=== PATIENT | male | born 1970 | race Caucasian/White ===

== ENCOUNTER 2019-03-04 06:01 | Emergency (ER) | payer OTHER, SELFPAY ==
[2019-03-04 06:02] VITALS: BP 192/126; PULSE 86; RESP 16; TEMP 36.8; O2SAT 98; BMI 46.7
[2019-03-04 06:05] VITALS: O2SAT 97
--- NOTE | 2019-03-04 06:07 | EKG12_ITS ---
Test Reason : CP Blood Pressure : / mmHG Vent. Rate : 083 BPM Atrial Rate : 083 BPM P-R Int : 144 ms QRS Dur : 098 ms QT Int : 376 ms P-R-T Axes : 047 -43 024 degrees QTc Int : 441 ms Normal sinus rhythm Left axis deviation Abnormal ECG Confirmed by ROBYN HEATON, ADRIAN ([id number]), publication editor MODESTO TAN ([id number]) on 03/08/2019 8:45:47 AM Referred By: DC Confirmed By:ADRIAN CARLSON MD
[2019-03-04 06:15] VITALS: PULSE 80; RESP 16
--- NOTE | 2019-03-04 06:15 | RAD_ITS ---
STUDY: X-RAY CHEST REASON FOR EXAM: Male, 48 years old. COUGH, CHEST PAIN, SOB TECHNIQUE: AP portable COMPARISON: 07/14/2012 FINDINGS: The lungs are clear and expanded. There is no demonstrated pleural abnormality. Normal size heart. Normal mediastinum and monique. Normal visualized pulmonary arteries. Normal visualized aortic arch and descending thoracic aorta. Normal visualized thoracic spine. Normal visualized ribs, clavicles, and shoulders. There is no demonstrated abnormality of the visualized soft tissue structures of the upper abdomen. RAD/Chest 1 View (Portable) IMPRESSION: Negative x-ray examination of the chest. Electronically Signed: Zuhair Bueno, at 6:39 EST Tel , Service support ,
[2019-03-04 06:28] LABS: Absolute Lymphocyte Count 1.86 X10^3/uL (0.83-4.51); Absolute Neutrophil Count 4.7 X10^3/uL (2.0-7.7); Basophil# 0.04 X10^3/uL; Basophil% 0.5 % (0-1); Eosinophil# 0.54 X10^3/uL; Eosinophils% 6.8 % (0-5); Hematocrit 45.1 % (40-54); Hemoglobin 15.4 g/dL (13.0-16.5); Lymphocyte # 1.86 X10^3/ul (4.0); Lymphocyte % 23.6 % (19-41); Mean Corp Hgb Conc 34.1 g/dL (32-36); Mean Corpuscular Hgb 29.8 pg (27.0-32.0); Mean Corpuscular Volume 87.2 fL (80-94); Mean Platelet Vol. 9.6 fl (6.2-12.0); Monocyte# 0.76 X10^3/uL; Monocyte% 9.6 % (0-10); NRBC Flagged by Analyzer 0 % (0-5); Neutrophil # 4.67 X10^3/uL (2.7-7.7); Neutrophil % 59.2 % (47-70); Platelet Count 258 K/mm3 (150-450); RBC Distribution Width CV 12.5 % (11.6-14.6); RBC Distribution Width SD 40.2 fl (35.1-43.9); Red Blood Count 5.17 M/mm3 (4.6-6.2); White Blood Count 7.9 K/mm3 (4.4-11.0)
--- NOTE | 2019-03-04 06:30 | ED.RN ---
DR ASH NOTIFIED PT DOES NOT HAVE AN IV BUT BLOOD WAS OBTAINED. PER DR ASH OK TO HOLD OFF ON IV AT THIS TIME
[2019-03-04 06:46] LABS: Anion Gap 5 (5-15); BUN 10 mg/dL (7-18); BUN/Creat Ratio 10.5 RATIO (10-20); Calcium,Total 9.1 mg/dL (8.5-10.1); Chloride 110 mmol/L (98-107); Creatinine, Serum 0.95 mg/dL (0.70-1.30); EST Glomerular Filtration Rate 90 mL/min (>60); Est Glom Filt Rate - Afr Amer 109 mL/min (>60); Estimated Creatinine Clearance 95.09 ml/min; Glucose 112 mg/dL (74-106); Potassium 3.9 mmol/L (3.5-5.1); Sodium Level 143 mmol/L (136-145)
--- NOTE | 2019-03-04 06:53 | ED.DCSUM_ITS ---
- ER Visit Summary Date of Service: 03/04/19 Chief Complaint: Cold History of Present Illness: The patient is a 48 M with cold symptoms for the past week. He has a cough with sputum. Denies fevers. Over the past 3 days he has had left-sided chest pain with coughing. No history of heart disease, blood clots, aortic disease. No recent surgery or travel. History of hypertension. He is out of his blood pressure medicine. Physical Examination: Afebrile and vital signs unremarkable except blood pressure 192/126. Patient has wheezing in all blake. Heart regular. Abdomen soft. Extremities nontender with no edema. Skin appears normal. Test Results: EKG shows sinus rhythm at a rate of 83. No sign of acute ischemia or infarction pattern. Chest x-ray negative. CBC normal. BMP unremarkable. Troponin normal. Emergency Department Course and Treatment: Patient had an EKG and was placed on a monitor. He was given a breathing treatment as well as his home blood pressure medicines that he has not taken yet today. On reevaluation, blood pressure is 167/108. Patient's lungs are clear. He is feeling better. We will treat with a course of doxycycline and an albuterol inhaler. I refilled his blood pressure medicines. He will follow-up with his PCP. Treatment Plan: As above Disposition: Discharge Impression: 1. Bronchitis 2. Hypertension This note was generated with [employer] dictation software. It may contain incorrect words, spelling, and punctuation that were not noted in review of the chart prior to signing ED Disposition - Plan for ED Patient: Referrals: Care Physician,No Primary [Primary Care Provider] -
[2019-03-04] MEDS: Metoprolol(XL)Succ 100 MG Tablet PO (06:54)
[2019-03-04] MEDS: Losartan Potassium 100 MG Tablet PO (06:54)
--- NOTE | 2019-03-04 06:55 | ED.DEP ---
ED Disposition - Plan for ED Patient: Instructions: BRONCHITIS, Antiobiotic Treatment (Adult) Prescriptions: Doxycycline 100 mg PO BID #20 cap Prescription Printed Losartan Potassium 100 mg PO DAILY #30 tab Prescription Printed Metoprolol Succinate 100 mg PO DAILY #30 tab.er.24h Prescription Printed Albuterol Inhaler [Ventolin Hfa] 2 puff INHALATION Q4H PRN PRN #1 inhaler PRN Reason: Wheezing Prescription Printed Referrals: Teddy Menchaca MD [NON-STAFF] -
[2019-03-04 06:56] VITALS: BP 167/108; PULSE 86; RESP 13; O2SAT 96
[2019-03-04] MEDS: Doxycycline 100 MG CAPSULE PO (07:12)
[2019-03-04 07:13] VITALS: BP 165/111; PULSE 83; RESP 18; O2SAT 97
== END 2019-03-04 07:16 | disposition home or self-care (01) ==
LOC: ED 06:20
PROVIDERS: Emergency Provider Emergency Medicine
DX: J40 Bronchitis, not specified as acute or chronic (principal); I10 Essential (primary) hypertension
CPT/HCPCS: 71045; 80048; 84484; 85025; 93005; 94640; 99284

== ENCOUNTER 2020-01-15 18:59 | Emergency (ER) | payer OTHER, SELFPAY ==
[2020-01-15 19:01] VITALS: PULSE 80; RESP 19; TEMP 36.3; O2SAT 96; BMI 45.3
[2020-01-15 20:20] VITALS: BP 196/107; PULSE 77; RESP 18; TEMP 36.7; O2SAT 96; O2SAT 98
[2020-01-15] MEDS: diazePAM 5 MG Tablet PO (20:21)
[2020-01-15] MEDS: 0.9% Normal Saline 1,000 ML 1000 ML IV ×2 (20:52→22:19)
[2020-01-15] MEDS: Ketorolac 30 MG/ML Syringe IV (20:53)
[2020-01-15 21:20] LABS: Probe Check PASS; Specimen Processing Control PASS
[2020-01-15 21:21] LABS: ALB/GLOB Ratio 1.1 RATIO (0.9-2.4); AST(SGOT) 25 U/L (15-37); Absolute Lymphocyte Count 1.17 X10^3/uL (0.83-4.51); Absolute Neutrophil Count 11.5 X10^3/uL (2.0-7.7); Alanine Aminotransfer ALT/SGPT 53 U/L (16-61); Albumin, Serum 4.1 g/dL (3.2-5.0); Alkaline Phosphatase 79 U/L (45-117); Anion Gap 7 (5-15); BUN 11 mg/dL (7-18); BUN/Creat Ratio 11.6 RATIO (10-20); Basophil# 0.04 X10^3/uL; Basophil% 0.3 % (0-1); Calcium,Total 9.5 mg/dL (8.5-10.1); Chloride 103 mmol/L (98-107); Creatinine, Serum 0.95 mg/dL (0.70-1.30); EST Glomerular Filtration Rate 90 mL/min (>60); Eosinophil# 0.04 X10^3/uL; Eosinophils% 0.3 % (0-5); Est Glom Filt Rate - Afr Amer 109 mL/min (>60); Estimated Creatinine Clearance 94.06 ml/min; Globulin 3.7 g/dL (2.2-4.2); Glucose 112 mg/dL (74-106); Hematocrit 46.4 % (40-54); Hemoglobin 16.3 g/dL (13.0-16.5); Lipase 121 U/L (73-393); Lymphocyte # 1.17 X10^3/ul (4.0); Lymphocyte % 8.7 % (19-41); Mean Corp Hgb Conc 35.1 g/dL (32-36); Mean Corpuscular Hgb 29.9 pg (27.0-32.0); Mean Platelet Vol. 10.3 fl (6.2-12.0); Monocyte# 0.61 X10^3/uL; Monocyte% 4.5 % (0-10); NRBC Flagged by Analyzer 0 % (0-5); Neutrophil # 11.54 X10^3/uL (2.7-7.7); Neutrophil % 85.8 % (47-70); Platelet Count 306 K/mm3 (150-450); Potassium 3.6 mmol/L (3.5-5.1); Protein, Total 7.8 g/dL (6.4-8.2); RBC Distribution Width CV 12.4 % (11.6-14.6); RBC Distribution Width SD 38.2 fl (35.1-43.9); Red Blood Count 5.46 M/mm3 (4.6-6.2); Sodium Level 137 mmol/L (136-145); White Blood Count 13.5 K/mm3 (4.4-11.0)
--- NOTE | 2020-01-15 21:28 | CT_ITS ---
STUDY: CT ABDOMEN AND PELVIS WITH CONTRAST REASON FOR EXAM: Male, 49 years old. COUGH, FEVER, SOB, DIARRHEA SINCE THIS AM RADIATION DOSAGE (If Supplied By Facility): CTDIvol = ( 18.74 ) mGy, DLP = ( 1344.68 ) mGycm TECHNIQUE: Transaxial images were obtained from the dome of the diaphragm to the symphysis pubis without oral contrast. IV 100mL Isovue-370 was administered. Sagittal and coronal images were reconstructed. Individualized dose optimization techniques were used for this CT. COMPARISON: 08/17/2011 FINDINGS: The visualized lung bases are unremarkable. The visualized portions of the heart are within normal limits. There is decreased attenuation of the liver consistent with steatosis. There is non-visualization of the gallbladder, which may be secondary to either contraction or a prior cholecystectomy. Normal spleen. Normal pancreas. Normal bilateral adrenal glands. Right kidney has a 1.5 cm cyst of the lower pole. There is a 2 mm nonobstructing right lower pole stone. Otherwise normal right kidney. Left kidney has tiny nonobstructing stones are seen in the left upper pole and mid pole region. Otherwise normal left kidney. Evaluation of the GI tract is limited by the absence of oral contrast. Normal visualized stomach. Normal small intestine. Normal colon. The appendix is visualized and appears normal. Normal abdominal aorta. Normal inferior vena cava. Normal retroperitoneum. Normal urinary bladder. Normal abdominal wall. There are diffuse degenerative changes of the visualized lumbar spine. CT/Abdomen/Pelvis W IV Cont ONLY IMPRESSION: No definite acute abnormalities. Bilateral tiny nonobstructing renal stones. Electronically Signed: Stuart Adkins MD at 22:20 EST , Service support ,
[2020-01-15] MEDS: Ondansetron 4 MG/2 ML Vial IV (21:32)
--- NOTE | 2020-01-15 21:44 | ED.DCSUM_ITS ---
History of Present Illness Chief Complaint: Shortness of Breath Informant: Patient Narrative: 49-year-old male presents the emergency department with diarrhea and nausea. Symptoms began yesterday and have progressively gotten worse. He notes a slight cough. No fevers. He feels dehydrated. He also has had some intermittent right low back/sciatic pain. Since he has been ill and getting dehydrated's been acting up more than normal for him. No history of colitis. He does eat a fair amount of crab. 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 Past Medical History - Allergies and Home Meds Allergies/Adverse Reactions: Allergies No Known Allergies Allergy (Verified 01/15/20 19:00) Surgical History: noncontributory Lives: With Family Smoking Status: Never smoker Drugs: None Review of Systems General: Denies: Chills, Fever, Sweats Eyes: Denies: Visual changes - bilaterally, Diplopia ENT: Denies: Rhinorrhea, Sore throat Cardiovascular: Denies: Chest pain, Palpitations Respiratory: Reports: Cough. Denies: Dyspnea, Dyspnea on exertion Gastrointestinal: Reports: Nausea, Vomiting, Diarrhea. Denies: Abdominal pain, Melena, Hematochezia Genitourinary: Denies: Dysuria, Hematuria, Frequency Musculoskeletal: Reports: Back pain. Denies: Extremity Pain Skin: Denies: Rash, Wounds Neurological: Denies: Headache, Weakness, Numbness Physical Exam Vital Signs/Narrative: Vital Signs Temp Pulse Resp BP Pulse Ox 01/15/20 20:20 98.0 F 77 18 196/107 H 98 01/15/20 19:01 97.3 F L 80 19 H 96 Inital Vital Signs reviewed: Yes General: Well nourished, Well developed, No Acute Distress Head: Normocephalic, Atraumatic Eyes: Perrl, EOMI ENT: Moist mucous membranes, No rhinorrhea Neck: Supple, Nontender Cardiovascular: Regular rate, Regular rhythm, No murmurs Respiratory: No distress, CTA bilaterally, Chest nontender Abdomen: Soft, Nontender, Nondistended, Normal bowel sounds Back: - - Tender to palpation in the right lumbar paraspinal musculature and right buttock. Extremities: Nontender, No edema Skin: Normal color, No rash Neurological: Alert, Oriented x3, Cranial nerves II-XII grossly intact, Normal Strength, Normal Sensation Psychological: Normal affect, Normal Mood Diagnostic/Tx/Re-eval Laboratory Last Values WBC 13.5 K/mm3 (4.4-11.0) H 01/15/20 20:50 RBC 5.46 M/mm3 (4.6-6.2) 01/15/20 20:50 Hgb 16.3 g/dL (13.0-16.5) 01/15/20 20:50 Hct 46.4 % (40-54) 01/15/20 20:50 MCV 85.0 fL (80-94) 01/15/20 20:50 MCH 29.9 pg (27.0-32.0) 01/15/20 20:50 MCHC 35.1 g/dL (32-36) 01/15/20 20:50 RDW Std Deviation 38.2 fl (35.1-43.9) 01/15/20 20:50 RDW Coeff of Carmelo 12.4 % (11.6-14.6) 01/15/20 20:50 Plt Count 306 K/mm3 (150-450) 01/15/20 20:50 MPV 10.3 fl (6.2-12.0) 01/15/20 20:50 Immature Gran % (Auto) 0.400 % (0.0-0.9) 01/15/20 20:50 Neut % (Auto) 85.8 % (47-70) H 01/15/20 20:50 Lymph % (Auto) 8.7 % (19-41) L 01/15/20 20:50 [place] % (Auto) 4.5 % (0-10) 01/15/20 20:50 Eos % (Auto) 0.3 % (0-5) 01/15/20 20:50 Baso % (Auto) 0.3 % (0-1) 01/15/20 20:50 Absolute Neuts (auto) 11.5 X10^3/uL (2.0-7.7) H 01/15/20 20:50 Absolute Lymphs (auto) 1.17 X10^3/uL (0.83-4.51) 01/15/20 20:50 Nucleated RBC % 0 % (0-5) 01/15/20 20:50 Sodium 137 mmol/L (136-145) 01/15/20 20:50 Potassium 3.6 mmol/L (3.5-5.1) 01/15/20 20:50 Chloride 103 mmol/L (98-107) 01/15/20 20:50 Carbon Dioxide 27.0 mmol/L (21.0-32.0) 01/15/20 20:50 Anion Gap 7 (5-15) 01/15/20 20:50 BUN 11 mg/dL (7-18) 01/15/20 20:50 Creatinine 0.95 mg/dL (0.70-1.30) 01/15/20 20:50 Estim Creat Clear Calc 94.06 ml/min 01/15/20 20:50 Est GFR (MDRD) Af Amer 109 mL/min (>60) 01/15/20 20:50 Est GFR (MDRD) Non-Af 90 mL/min (>60) 01/15/20 20:50 BUN/Creatinine Ratio 11.6 RATIO (10-20) 01/15/20 20:50 Glucose 112 mg/dL (74-106) H 01/15/20 20:50 Calcium 9.5 mg/dL (8.5-10.1) 01/15/20 20:50 Total Bilirubin 0.90 mg/dL (0.20-1.00) 01/15/20 20:50 AST 25 U/L (15-37) 01/15/20 20:50 ALT 53 U/L (16-61) 01/15/20 20:50 Alkaline Phosphatase 79 U/L (45-117) 01/15/20 20:50 Total Protein 7.8 g/dL (6.4-8.2) 01/15/20 20:50 Albumin 4.1 g/dL (3.2-5.0) 01/15/20 20:50 Globulin 3.7 g/dL (2.2-4.2) 01/15/20 20:50 Albumin/Globulin Ratio 1.1 RATIO (0.9-2.4) 01/15/20 20:50 Lipase 121 U/L (73-393) 01/15/20 20:50 COVID-19 (ERAN) Negative (Not Detect) 01/15/20 20:22 - Medical Decision Making Patient received 2 L of IV fluids and Zofran. I also gave Toradol and Valium for the back pain. He is feeling better from the back pain standpoint. As he has been hydrated he states the nausea seems to be getting worse. He received additional Zofran. White count returned slightly elevated at 13. Therefore a CT of the abdomen pelvis was obtained. This was negative for colitis and obstruction. Patient will be discharged home with prescriptions for Zofran and Valium. Return if worsening or concerns ED Disposition - Plan for ED Patient: Disposition: Home or Assisted Living Instructions: ED Spasm Back No Trauma, ED Viral Gastroenteritis Prescriptions: Diazepam [Valium] 5 mg PO Q8 PRN #20 tab PRN Reason: Muscle Spasm Prescription Printed Ondansetron [Zofran Odt] 4 mg PO Q6H PRN PRN #20 tab PRN Reason: Nausea Prescription Printed
[2020-01-15 22:20] VITALS: BP 189/96; PULSE 79; RESP 18; TEMP 36.6; O2SAT 96
[2020-01-15] MEDS: Morphine 4 MG/ML Syringe IV (23:33)
[2020-01-15 23:55] VITALS: BP 173/98; RESP 18; O2SAT 98
== END 2020-01-15 23:57 | disposition home or self-care (01) ==
PROVIDERS: Emergency Provider Emergency Medicine
DX: M54.9 Dorsalgia, unspecified (principal); R05 Cough; R19.7 Diarrhea, unspecified; R11.2 Nausea with vomiting, unspecified
CPT/HCPCS: 74177; 80053; 83690; 85025; 87635; 96361; 96374; 96375; 99283; J7030; Q9967; A4216; J2405; U0002

== ENCOUNTER 2023-11-23 03:38 | Emergency (ER) | payer BC, SELFPAY ==
[2023-11-23 03:39] VITALS: BP 225/114; PULSE 93; RESP 19; TEMP 36.6; O2SAT 96; BMI 50.0
--- NOTE | 2023-11-23 04:13 | ED.VIS.LOWEX ---
HPI History of Present Illness HPI Narrative: Patient presents with left foot pain that began yesterday. Patient states he was walking on the a hill side when he felt a pop in his left foot. Patient states the pain has been getting worse since that time. Patient states it is constant aching but is sharp with weightbearing. Patient states it is better with rest. Patient denies any paresthesias or weakness. Patient denies any other injuries. Patient states he is unable to bear weight due to the pain. Chief Complaint: Lower Extremity Injury Informant: patient Occured/Mechanism Comment: Kinderhook a pop while walking Onset/Context/Timing Onset: Yesterday Context: Sudden Onset Timing: Continuous Quality of Pain: Sharp (With weightbearing) and Aching Location: Left foot Worsened by: Weightbearing Relieved by: Rest Associated Symptoms Associated Symptoms: Negative for Parasthesia, Weakness or Loss of Funtion PFSH [facility] Medical History (Updated 11/23/23 @ 05:[address] Yariel Philippe DO) Biceps tendon rupture Sprained ankle Back muscle spasm Hypertension Home Medications ?Medication ?Instructions ?Recorded ?Last Taken ?Type diazepam 5 mg tablet 5 mg PO Q8 PRN Muscle Spasm #20 01/15/20 Unknown Rx tabs Allergy/AdvReac Type Severity Reaction Status Date / Time No Known Allergies Allergy Verified 11/23/23 03:39 Surgical History (Updated 11/23/23 @ 04:[address] Yariel Philippe DO) History of carpal tunnel surgery History of cholecystectomy Hx of cataract surgery Social History Smoking Status: Never smoker ROS ROS ED Constitutional Constitutional ED: Denies chills or fever(s) Eyes Eyes: Denies blurry vision or change in vision ENT ENT ED: Denies rhinorrhea or sore throat Cardiovascular Cardiovascular: Denies chest pain or palpitations Respiratory/Chest Respiratory/Chest: Denies cough or dyspnea Gastrointestinal Gastrointestinal: Denies nausea or vomiting Genitourinary Genitourinary ED: Denies dysuria or hematuria Musculoskeletal Musculoskeletal: Reports back pain; Denies neck pain Integumentary Denies abscess or rash Neurologic Neurologic: Denies headache(s) or weakness Allergic/Immunologic Allergic/Immunologic ED: Denies mouth swelling or urticaria EXAM Physical Exam Const Vital Signs: 11/23/23 03:39 Temperature 97.8 F Temperature Source Temporal Pulse Rate 93 Respiratory Rate 19 H Blood Pressure 225/114 H Blood Pressure Mean 151 Pulse Ox 96 Oxygen Delivery Method Room Air Positive well nourished and well developed General Appearance ED: well developed and NAD HEENT Reports moist mucous membranes Neck full ROM and supple Extremity Extremity Narrative: There is tenderness over the dorsal and plantar aspects of the left midfoot over the third and fourth metatarsals. There is some mild edema. There is no obvious deformity noted. Range of motion is limited in plantarflexion and dorsiflexion of the left foot secondary to pain. Pedal pulses are equal bilateral. Sensation is intact to light touch in all digits. Neuro oriented x3, CN's II-XII intact bilaterally, moves all extremities and no sensory deficits noted Sensorium / Orientation: alert Motor Exam: strength 5/5 throughout MDM MDM MDM Narrative Medical decision making narrative: Differential diagnosis includes fracture, sprain, and contusion. X-rays of the left foot will be obtained to assess for fracture. Radiography Diagnostic Testing: Clinical Impression(s) from Imaging Studies Foot X-Ray 11/23/23 04:19 IMPRESSION: No evidence of fracture. Electronically Signed: Bhavna Mendoza MD at 5:09 EDT Reading Location ID and State: [facility] / [place] Tel , Service support , X-rays of the left foot were obtained. There are 3 views. On my independent interpretation, there is no acute fracture or dislocation noted. There is no soft tissue swelling noted. Radiologist also interpreted the x-rays and agrees. Treatment and Re-Evaluation Narrative: Patient was given a dose of [place] here. Patient was given walking boot and crutches. Patient was instructed to weight-bear as tolerated. Patient was instructed to ice and elevate his left foot. Patient was instructed to take Tylenol or ibuprofen as needed for pain. Patient was instructed to follow-up with his primary care physician in 5 to 7 days. Patient understood and was agreeable with the plan. All questions were answered. Discharge Plan Triage Chief Complaint: Lower Extremity Injury ED Provider: Yariel Philippe Dx/Rx/DC Orders Clinical Impression: Sprain of left foot, Elevated blood pressure reading without diagnosis of hypertension Instructions: ED Foot Sprain Prescriptions: No Action diazepam 5 MG tablet 5 mg PO Q8 PRN (Reason: Muscle Spasm) Qty: 20 0RF Primary Care Provider: Care Physician,No Primary Referrals: Jil Fox DO [Med Staff - Active Staff] - 5-7 Days Care Physician,No Primary [Primary Care Provider] - Print Language: Syriac Disposition Disposition: Home, Self Care
--- NOTE | 2023-11-23 04:19 | RAD_ITS ---
INDICATION: INJURY/PAIN FELT A POP WHILE IN LT FOOT WHILE WALKING C/O PAIN PLANTAR SURFACE AREA OF PROXIMAL 1-2 METATARSALS EXAMINATION/TECHNIQUE: X-RAY - LEFT XR Foot Min 3 Views 3 VIEWS COMPARISON: No relevant prior comparison study available FINDINGS: BONES: No fracture demonstrated. Plantar calcaneal spur. JOINTS: No dislocation. SOFT TISSUES: Unremarkable. RAD/Foot min 3 Views IMPRESSION: No evidence of fracture. Electronically Signed: Bhavna Mendoza MD at 5:09 EDT ,
[2023-11-23] MEDS: HYDROcodone Bitartrate/Apap 5/325 Tablet PO (04:59)
[2023-11-23 05:58] VITALS: BP 195/110; PULSE 80; RESP 18; TEMP 36.6; O2SAT 97
== END 2023-11-23 06:07 | disposition home or self-care (01) ==
PROVIDERS: Emergency Provider Emergency Medicine; Visit Provider Emergency Medicine
DX: R03.0 Elevated blood-pressure reading, without diagnosis of hypertension (principal); S93.602A Unspecified sprain of left foot, initial encounter; X58.XXXA Exposure to other specified factors, initial encounter; Y93.01 Activity, walking, marching and hiking; Y92.828 Other wilderness area as the place of occurrence of the external cause; Z90.49 Acquired absence of other specified parts of digestive tract; M54.9 Dorsalgia, unspecified
CPT/HCPCS: 73630; 99283

== ENCOUNTER 2024-11-19 02:25 | Emergency (ER) | payer BC, SELFPAY ==
[2024-11-19] VITALS (9 sets, daily range): BP systolic 159–248; BP diastolic 105–170; PULSE 80–101; RESP 17–24; TEMP 36.3–36.7; O2SAT 93–99; BMI 53.0
--- NOTE | 2024-11-19 02:32 | EKG12_ITS ---
Test Reason : DYSRHYTHMIA Blood Pressure : */* mmHG Vent. Rate : 99 BPM Atrial Rate : 99 BPM P-R Int : 148 ms QRS Dur : 112 ms QT Int : 390 ms P-R-T Axes : 35 -37 92 degrees QTcB Int : 500 ms Normal sinus rhythm Left axis deviation Minimal voltage criteria for LVH, may be normal variant ( [place] product ) Nonspecific ST and T wave abnormality Prolonged QT Abnormal ECG Confirmed by Travis Cotto ([id number]), health editor SHREYA MENEZES ([id number]) on 11/20/2024 10:17:48 AM Referred By: JONATHON Confirmed By: Travis Cotto
--- OUTSIDE RECORDS SUMMARY | 2024-11-19 02:45 | XMS RPT_ITS | CCD ---
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 Name Role Phone JANAY MENCHACA Primary Care Unavailable GHULAM ORTEGA Referring Unavailable JANAY MENCHACA Primary Care Unavailable JANAY MENCHACA Primary Care Unavailable Joey LIMON Attending Unavailable JANAY MENCHACA Referring Unavailable JANAY MENCHACA Primary Care Unavailable JANAY MENCHACA Primary Care Unavailable MAY VÁZQUEZ Attending Unavailable GHULAM ORTEGA Referring Unavailable JANAY MENCHACA Primary Care Unavailable Joey LIMON Attending Unavailable JANAY MENCHACA Primary Care Unavailable NEIL CONTRERAS Attending Unavailable Joey LIMON Referring Unavailable Janay Menchaca MD Primary Care Provider Yariel Philippe Attending Unavailable Care Physician, No Primary Primary Care Unava ilable Allergies Allergy Classification Reported Allergen(s) Allergy Type Date of Onset Reaction(s) Facility (2 sources) Lisinopril; Translations: [LISINOPRIL] Drug Allergy 8 Cough [facility] Repository (2 sources) Milk; Translations: [MILK] Propensity to adverse reactions to food (disorder) 5 [facility] Repository (1 source) OTHER; Translations: [OTHER] Propensity to adverse reactions (disorder) 8 [facility] Repository (1 source) paper tape [Other] Propensity to adverse reactions 8 [facility] Medications Current Medications Medication Drug Class(es) Dates Sig (Normalized) Sig (Original) aspirin 325 mg oral tablet (1 source) Platelet Aggregation Inhibitor, Nonsteroidal Anti-inflammatory Drug take 1 tablet by mouth once daily aspirin 325 mg tablet Take 325 mg by mouth once daily. Active Completed/Discontinued Medications Medication Drug Class(es) Dates Sig (Normalized) Sig (Original) azelastine hydrochloride 0.5 mg/ml ophthalmic solution (1 source) Histamine-1 Receptor Antagonist Start: 09-29-19 End: 03-12-20 take 1 drop(s) into the eye(s) twice daily Azelastine HCl (OPTIVAR) 0.05 % ophthalmic solution Use 1 Drop in both eyes twice daily. 1 Bottle 09/28/2018 03/12/2021 Discontinued (Course of therapy completed) diazePAM 10 mg oral tablet (1 source) Benzodiazepine End: 03-12-20 21 take 1 tablet by mouth every six hours as needed diazePAM (VALIUM) 10 mg tablet Take 10 mg by mouth every 6 hours as needed (back spasms). 03/12/2021 Discontinued (Course of therapy completed) hydroCHLOROthiazide 25 mg oral tablet (1 source) Thiazide Diuretic Start: 12-13-19 End: 03-11-20 21 take 1 tablet by mouth once daily hydroCHLOROthiazide (HYDRODIURIL, ESIDRIX) 25 mg tablet Indications: Essential hypertension, benign Take 1 tablet by mouth once daily. 90 tablet 3 12/12/2017 03/11/2021 Discontinued losartan potassium 100 mg oral tablet (1 source) Angiotensin 2 Receptor Maury Start: 12-13-19 End: 03-12-20 21 take 1 tablet by mouth once daily losartan (COZAAR) 100 mg tablet Indications: Essential hypertension, benign Take 1 tablet by mouth once daily. 90 tablet 3 12/12/2017 03/12/2021 Discontinued (Course of therapy completed) 24 hr metoprolol succinate 100 mg extended release oral tablet (1 source) beta-Adrenergic Maury Start: 09-06-19 End: 02-17-20 21 take 1 tablet by mouth once daily metoprolol succinate ER (TOPROL XL) 100 mg Tb24 Indications: Essential hypertension Take 1 tablet by mouth once daily. 90 tablet 1 09/05/2018 02/16/2021 Discontinued Problems Active Problems Problem Classification Problem Date Documented Da te Episodic/Chronic Cardiac dysrhythmias (1 source) Paroxysmal atrial fibrillation; Translations: [Paroxysmal atrial fibrillation] Onset: 06-14-2017 06-14-2017 Chronic Essential hypertension (3 sources) Essential (primary) hypertension; Translations: [Benign essential hypertension] Onset: 11-08-2005 07-11-2024 Chronic Other circulatory disease (1 source) Elevated blood-pressure reading, without diagnosis of hypertension; Translations: [Elevated blood-pressure reading, without diagnosis of hypertension] Onset: 12-13-2023 Episodic Other nervous system disorders (1 source) Other chronic pain; Translations: [Chronic pain of left knee] Onset: 02-16-2021 Chronic Other non-traumatic joint disorders (3 sources) Pain in left knee; Translations: [Pain in joint, lower leg] Onset: 02-16-2021 02-16-2021 Episodic Other nutritional; endocrine; and metabolic disorders (1 source) Morbid (severe) obesity due to excess calories; Translations: [Morbidly obese (HCC)] Onset: 12-09-2017 Chronic Other nutritional; endocrine; and metabolic disorders (1 source) Morbid obesity; Translations: [Morbid (severe) obesity due to excess calories] Onset: 12-09-2017 12-09-2017 Chronic Past or Other Problems Problem Classification Problem Date Documented Da te Episodic/Chronic Other connective tissue disease (1 source) Triggering of digit; Translations: [Trigger finger, unspecified finger] Onset: 01-20-2010 01-20-2010 Episodic Other non-traumatic joint disorders (1 source) Effusion, left knee; Translations: [Effusion of bursa of left knee] Onset: 04-20-2021 Episodic Sprains and strains (2 sources) Rupture of tendon of biceps; Translations: [Strain of muscle, fascia and tendon of other parts of biceps, left arm, initial encounter] Onset: 12-06-2017 12-13-2017 Episodic Results Test Name Value Interpretation Reference Range Facility Emergency Department Summary on 11-23-2023 Emergency Department Summary [facility] Medical Records Department [address] [place] [id number] Emergency Department Summary 11/23/23 MR#: [id number] Acct: [id number] Name: KRISTOPHER POLO GEORGE Rep #: [id number] : 1970 53 From: Yariel Philippe DO PCP: Care Physician,No Primary Status:DEP ER Location: ED HPI History of Present Illness HPI Narrative: Patient presents with left foot pain that began yesterday. Patient states he was walking on the a hill side when he felt a pop in his left foot. Patient states the pain has been getting worse since that time. Patient states it is constant aching but is sharp with weightbearing. Patient states it is better with rest. Patient denies any paresthesias or weakness. Patient denies any other injuries. Patient states he is unable to bear weight due to the pain. Chief Complaint: Lower Extremity Injury Informant: patient Occured/Mechanism Comment: [place] a pop while walking Onset/Context/Timing Onset: Yesterday Context: Sudden Onset Timing: Continuous Quality of Pain: Sharp (With weightbearing) and Aching Location: Left foot Worsened by: Weightbearing Relieved by: Rest Associated Symptoms Associated Symptoms: Negative for Parasthesia, Weakness or Loss of Funtion [facility] Medical History (Updated 11/23/23 @ 05:[address] Yariel Philippe, DO) Biceps tendon rupture Sprained ankle Back muscle spasm Hypertension Home Medications ???Medication ???Instructions ???Recorded ???Last Taken ???Type diazepam 5 mg tablet 5 mg PO Q8 PRN Muscle Spasm #20 01/15/20 Unknown Rx tabs Allergy/AdvReac Type Severity Reaction Status Date / Time No Known Allergies Allergy Verified 11/23/23 03:39 Surgical History (Updated 11/23/23 @ 04:[address] Yariel Philippe, DO) History of carpal tunnel surgery History of cholecystectomy Hx of cataract surgery Social History Smoking Status: Never smoker ROS ROS ED Constitutional Constitutional ED: Denies chills or fever(s) Eyes Eyes: Denies blurry vision or change in vision ENT ENT ED: Denies rhinorrhea or sore throat Cardiovascular Cardiovascular: Denies chest pain or palpitations Respiratory/Chest Respiratory/Chest: Denies cough or dyspnea Gastrointestinal Gastrointestinal: Denies nausea or vomiting Genitourinary Genitourinary ED: Denies dysuria or hematuria Musculoskeletal Musculoskeletal: Reports back pain; Denies neck pain Integumentary Denies abscess or rash Neurologic Neurologic: Denies headache(s) or weakness Allergic/Immunologic Allergic/Immunologic ED: Denies mouth swelling or urticaria EXAM Physical Exam Const Vital Signs: 11/23/23 03:39 Temperature 97.8 F Temperature Source Temporal Pulse Rate 93 Respiratory Rate 19 H Blood Pressure 225/114 H Blood Pressure Mean 151 Pulse Ox 96 Oxygen Delivery Method Room Air Positive well nourished and well developed General Appearance ED: well developed and NAD HEENT Reports moist mucous membranes Neck full ROM and supple Extremity Extremity Narrative: There is tenderness over the dorsal and plantar aspects of the left midfoot over the third and fourth metatarsals. There is some mild edema. There is no obvious deformity noted. Range of motion is limited in plantarflexion and dorsiflexion of the left foot secondary to pain. Pedal pulses are equal bilateral. Sensation is intact to light touch in all digits. Neuro oriented x3, CN's II-XII intact bilaterally, moves all extremities and no sensory deficits noted Sensorium / Orientation: alert Motor Exam: strength 5/5 throughout MDM MDM MDM Narrative Medical decision making narrative: Differential diagnosis includes fracture, sprain, and contusion. X-rays of the left foot will be obtained to assess for fracture. Radiography Diagnostic Testing: Clinical Impression(s) from Imaging Studies Foot X-Ray 11/23/23 04:19 IMPRESSION: No evidence of fracture. Electronically Signed: Bhavna Mendoza MD at 5:09 EDT Reading Location ID and State: [facility] / [place] Tel , Service support , X-rays of the left foot were obtained. There are 3 views. On my independent interpretation, there is no acute fracture or dislocation noted. There is no soft tissue swelling noted. Radiologist also interpreted the x-rays and agrees. Treatment and Re-Evaluation Narrative: Patient was given a dose of [place] here. Patient was given walking boot and crutches. Patient was instructed to weight-bear as tolerated. Patient was instructed to ice and elevate his left foot. Patient was instructed to take Tylenol or ibuprofen as needed for pain. Patient was instructed to follow-up with his primary care physician in 5 to 7 days. Patient unde (more content not included)... Normal [facility] Foot min 3 Viewson 4 Foot min 3 Views [facility] Imaging Services [address] [place], [place] [id number] Foot min 3 Views MR#: [id number] Acct: [id number] Name: KRISTOPHER POLO II Rep #: [id number] : 1970 M 53 From: Bhavna Wolf PCP: Care Physician,No Primary Status: REG ER Study: Foot min 3 Views Date of Exam: 11/23/23 Exam# [id number] Ordering Dr: Yariel Philippe DO [id number] INDICATION: INJURY/PAIN FELT A POP WHILE IN LT FOOT WHILE WALKING C/O PAIN PLANTAR SURFACE AREA OF PROXIMAL 1-2 METATARSALS EXAMINATION/TECHNIQUE: X-RAY - LEFT XR Foot Min 3 Views 3 VIEWS COMPARISON: No relevant prior comparison study available FINDINGS: BONES: No fracture demonstrated. Plantar calcaneal spur. JOINTS: No dislocation. SOFT TISSUES: Unremarkable. RAD/Foot min 3 Views IMPRESSION: No evidence of fracture. Electronically Signed: Bhavna Mendoza MD at 5:09 EDT , CC: Dr. Yariel Philippe DO; No Primary Care Physician Real Estate Management Specialist: [facility]igned [facility] Office Visit (ORTHWS ) -------- KRISTOPHER POLO ([id number]) 1970 M [facility] Date Time Provider Department 04/20/21 8:30 AM MAY VÁZQUEZ During your visit today, we recorded the following information about you: Weight Height 147 kg 1.778 m May Vázquez MD 04/20/2021 12:59 PM Signed May Vázquez MD Department of Orthopaedics Orthopaedics [address] [facility] [address] Dept: [phone] Dept April 20, 2021 CHIEF COMPLAINT: Knee Pain of the Left Knee and Referred by Thiago TAYLOR Patient denies any pain today. States he can have pain on the inside of his left knee. 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 States when he is on his feet working 2 days in a row. He is unable to put pressure on that knee. Taking Valium for the pain when needed and helps sleep. X-ray done on 02/16/21. AMB ROOMING INTAKE FLOWSHEET DATA Risk Screening Do you have concerns about personal safety or safety in the home?: No ASSESSMENT: M25.562, G89.29 Chronic pain of left knee M25.562 Acute pain of left knee M25.462 Effusion of bursa of left knee PLAN: We had a lengthy discussion about knee osteoarthritis and the treatment options. He really needs to work significantly on his weight. We are going to try an anti-inflammatory and he may consider cortisone injection at some point. Not at this time. FOLLOW UP INSTRUCTIONS: As needed Mr. Kristopher Polo was advised as to contrast therapies and/or to take analgesics/anti-inflamma tories as needed and all contraindications were reviewed. OBJECTIVE: Mr. Kristopher Polo is a pleasant 50 year old in no apparent distress. Gen:Ht 5' 10 (1.78m) Wt 324 lb (147.0kg) BMI 46.49 kg/(m2). nl development, Morbidly obese, no deformities ENT: Normocephalic, normal hearing, moist mucosa CV: Pulses:DP/PT= 2+ and symmetric, capillary refill < 2 secs, no peripheral edema/varicosities Skin: no rash, bruising or lesions. Good turgor. Psych: cooperative and appropriate, alert and oriented x 3, good mood and affect. Musculoskeletal: Patient walks with a mildly unsteady gait and slight antalgia to the left. He has a difficult exam from body habitus but does not have a significant effusion. Patellar tracking is laterally and has pain on the lateral facet as well as on compression testing. Some mild medial joint space tenderness as well as the distal femoral condyle. His motion is 5-120 degrees again limited by body habitus as opposed to pain. He has some mild medial joint space widening with valgus stress consistent with mild ligamentous laxity of the knee. Neurovascular exams intact. IMAGING: * * *Final Report* * * DATE OF EXAM: Feb 12:21PM ? WOX ? 5202 ?- ?XR KNEE 4V AP/PA BOTH+LAT/OMAR LT ?/ PROCEDURE REASON: multiple diagnoses ?? ? * * * * Physician Interpretation * * * * ?Indication: Left knee pain Comparison: ?None AP, PA, lateral and merchant views of the left knee are obtained. ?AP, PA and merchant views of the right knee are included. ?There is normal architecture and mineralization of the bones. ?There is no acute fracture or dislocation. ?There is narrowing of the lateral compartment and patellofemoral compartments of the right knee with subchondral sclerosis and marginal osteophytes. ?There is narrowing of the left patellofemoral compartment with marginal osteophytes. Impression: 1. ?No acute fracture or dislocation. 2. ?Degenerative disease of bilateral knees. Real Estate Management Specialist: PSCB ? Transcribe Date/Time: Feb 12:34P Dictated by : MYESHA MCGOWAN MD This examination was interpreted and the report reviewed and electronically signed by: MYESHA MCGOWAN MD on Feb 12:36PM ?EST Supporting Subjective Information Below: Past Medical History: PAST MEDICAL HISTORY Diagnosis Date - Atrial fibrillation (HCC) - Hypertension - Other specified disorder of gallbladder - Trigger finger 02/16/2010 RT 3RD AND 4TH FINGERS - Trigger finger (acquired) 03/09/2010 LEFT 3RD AND 4TH FINGER Past Surgical History: PAST SURGICAL HISTORY Procedure Laterality Date - CARPAL TUNNEL Bilateral - INCISE FINGER TENDON SHEATH 02/16/2010 RT 3RD AND 4TH FINGERS - INCISE FINGER TENDON SHEATH 03/09/2010 LEFT 3RD AND 4TH FINGER - LAPS SURG CHOLECYSTECTOMY W/CHOLANGIOGRAPHY 11/20/2007 - PAST SURGICAL HISTORY OF Right knee scope - PAST SURGICAL HISTORY OF Left bicepps rupture Family History: FAMILY HISTORY Problem Relation Age of Onset - Heart Mother - Hypertension Mother - Diabetes Mother - Hypertension Father - Diabetes Father - Heart Maternal Grandfather Social History: Social History Tobacco Use - Smoking status: Never Smoker - Smokeless tobacco: Never Used Vaping Use - Vaping Use: Never used Substance Use Top (more content not included)... Normal [facility] CNTHERAPYon 04-17-2021 CNTHERAPY OT/PT/Speech Visit (PTWS) -------- KRISTOPHER POLO ([id number]) 1970 M [facility] Date Time Provider Department 04/17/21 1:00 PM NEIL CONTRERAS PTWS Date Time Provider Department [place] 04/17/2021 1:00 PM [id number], BRENT PTWS Madison Jones Reason for Visit: PT Eval [747] PT Discharge [752] Visit Diagnoses:Acute pain of left knee [M25.562] Swelling of left knee joint [M25.462] Allergies As of Date: 04/17/2021 Noted Allergy Reaction LISINOPRIL 06/14/2017 3 - Cough MILK 01/19/2005 paper tape [Other] 11/07/2007 Date Reviewed: 04/09/2021 Reviewed by: Jil Domínguez Ma - Fully Assessed Prescriptions as of 12/16/2021 - etodolac (LODINE) 400 mg tablet Take 1 tablet by mouth twice daily. - metoprolol succinate ER (TOPROL XL) 100 mg Take 1 tablet by mouth once daily. - verapamil SR (CALAN SR, ISOPTIN SR) 240 mg CR tablet Take 1 tablet by mouth once daily. - verapamil SR (CALAN SR) 120 mg CR tablet Take 1 tablet by mouth daily at bedtime. - aspirin 325 mg tablet Take 325 mg by mouth once daily. -------- Normal [facility] CNOVon 04-09-2021 CNOV Office Visit (FAMPWS ) -------- KRISTOPHER POLO ([id number]) 1970 Joey [facility] Date Time Provider Department 04/09/21 4:00 PM Joey LIMON During your visit today, we recorded the following information about you: Pulse Respiration Blood pressure Weight 91/minute 20/minute 158/110 147 kg M Jian Limon PA-C 04/09/2021 7:32 PM Signed 50 year old male with c/o BP recheck, left knee pain, and back pain BP checks not occurring at home. Pt has a cuff at home. Left knee pain new onset 2 yrs ago, comes and goes Works 60 hour weeks Battling hard 5-6 months with knee pain. Endorses swelling sharp tendon pain, pain behind the knee. Radiates down the calf, tightness in the thigh. Denies tingling or popping sensation. Has tried massage, hot pad, and elevation shows improvement Right knee pain 6-7 yrs ago after a basketball injury. ACL tear in the R knee with arthroscopic surgery Dr. Vaca. Relates iIntermittent piercing pain around the SI joint, worsening pain with long work days Has tried hot pads and stretching Back pain improved from last visit with manual therapy. Doing well today. HTN: Current meds: Mostly compliant with Verapamil and Metoprolol Patient is compliant with meds Mostly compliant Monitors bp at home: No, pt has a BP cuff Denies side effects: None Chest pain: None Dyspnea: No Edema: No. Palpitations: No. Syncope: No. Headache: No.- Improved with increased water intake Dizziness: No. Last 3 Encounter BP Readings: Date: BP: 04/09/2021 158/110 03/12/2021 180/120 02/16/2021 144/100 Last 2 Encounter Wt Readings: Date: Wt: 04/09/2021 147 kg (324 lb) 03/12/2021 147.4 kg (325 lb) HISTORIES FAMILY HISTORY Problem Relation Age of Onset - Heart Maternal Grandfather PAST MEDICAL HISTORY Diagnosis Date - Atrial fibrillation (HCC) - Hypertension - Other specified disorder of gallbladder - Trigger finger 02/16/2010 RT 3RD AND 4TH FINGERS - Trigger finger (acquired) 03/09/2010 LEFT 3RD AND 4TH FINGER PAST SURGICAL HISTORY Procedure Laterality Date - CARPAL TUNNEL Bilateral - INCISE FINGER TENDON SHEATH 02/16/2010 RT 3RD AND 4TH FINGERS - INCISE FINGER TENDON SHEATH 03/09/2010 LEFT 3RD AND 4TH FINGER - LAPS SURG CHOLECYSTECTOMY W/CHOLANGIOGRAPHY 11/20/07 - PAST SURGICAL HISTORY OF Right knee scope Social History Tobacco Use - Smoking status: Never Smoker - Smokeless tobacco: Never Used Substance Use Topics - Alcohol use: Yes Comment: occasionally - Drug use: No ACTIVE PROBLEM LIST Essential Hypertension, Benign Trigger Finger Paroxysmal Atrial Fibrillation (Hcc) Rupture of Left Distal Biceps Tendon Biceps Tendon Rupture, Left, Initial Encounter Morbidly Obese (Hcc) Current Outpatient Medications Medication Sig Dispense Refill - metoprolol succinate ER (TOPROL XL) 100 mg Take 1 tablet by mouth once daily. 90 tablet 3 - verapamil SR (CALAN SR) 120 mg CR tablet Take 1 tablet by mouth daily at bedtime. 30 tablet 2 - aspirin 325 mg tablet Take 325 mg by mouth once daily. No current facility-administered medications for this visit. HEPATITIS C SCREENING Never done HIV SCREENING Never done BP CONTROLLED (<130/80) Never done COLORECTAL CANCER SCREENING Never done DTAP,TDAP,TD(2 - Td or Tdap) due on 08/26/2018 SHINGRIX VACCINE(1 of 2) Never done COVID-19 VACCINE(3 - Booster for Moderna series) due on 09/07/2020 EXAM: BP 158/110 Pulse 91 Resp 20 Wt (!) 147 kg (324 lb) SpO2 98% BMI 47.16 kg/m? Pleasant obese adult man in no acute distress. Alert and oriented all spheres. Normal affect and cognition. Speech normal. No deficits to learning or comprehension. Skin warm, dry, pink to lips and nailbeds. Normal turgor. Respirations regular and unlabored. Standing posture with even hip and shoulder, no scoliosis. Able to forward flex to toes. No innominate dysfunction today. Extrem: no clubbing or cyanosis. Edema: 0-1/4+ ankles Extremities are warm and pink with prompt capillary refill. Left knee with ballottable effusion infrapatellar, popliteal swelling > right. Negative patellar apprehension, negative bounce. No pain or laxity with varus or valgus stress. Negative anterior drawer, Se, Letty, Thessaly testing. Reviewed 02.16.2021 xrays again. ASSESSMENT/PLAN: 1. Acute pain of left knee - ICD9: 719.46, ICD10: M25.562 (primary diagnosis) Suspect chronic sprain without obvious joint laxity, mild left knee joint space narrowing r/t obesity and chronic walking/ standing in job. - CONSULT TO PHYSICAL THERAPY 2. Essential hypertension - ICD9: 401.9, ICD10: I10 - Resistant hypertension - Continue current medication(s) - Increase verapamil to 240 XL daily: recheck 4 weeks. - Recommended regular aerobic exercise. - Recommend home blood pressure monitoring, to bring results in on next visit - Goal of BP (more content not included)... Normal [facility] CNOVon 03-12-2021 CNOV Office Visit (FAMPWS ) -------- KRISTOPHER POLO ([id number]) 1970 [facility] Date Time Provider Department 03/12/21 1:00 PM [facility] During your visit today, we recorded the following information about you: Pulse Respiration Blood pressure Weight 91/minute 22/minute 180/120 147.4 kg M Jian Limon PA-C 03/12/2021 8:55 PM Signed 50 year old male with c/o exacerbation of right sided back pain which has been chronic. Battling left knee over last 6 months or more. If worked multiple days, knee would swell, hobbling at work. 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 Has been off about a week. 02/16/21 UC XR Hx meniscal repair right knee Dr. Vaca. Identifies chronic tight hamstrings. Using heating pad. Not taking BP med for awhile- no real good reason why. Not drinking water Was having headaches, thought related to HCTZ so stopped. Can't give a reason for stopping metoprolol Eats what is convenient. Knows diet is poor. Hx pAF one episode. Denies chest pain, palpitations, syncopal or near syncopal events, dyspnea. Patient is short of breath with exercise but not labored. Component Latest Ref Rng AND Units 02/18/2017 06/29/2017 03/05/2021 Protein, Total 6.3 - 8.0 g/dL 7.3 Albumin 3.9 - 4.9 g/dL 4.5 Calcium 8.5 - 10.2 mg/dL 8.9 9.6 9.7 Bilirubin, Total 0.2 - 1.3 mg/dL 0.5 Alkaline Phosphatase 36 - 108 U/L 65 AST 14 - 40 U/L 33 Glucose 74 - 99 mg/dL 103 (H) 106 (H) 148 (H) BUN 9 - 24 mg/dL 12 13 12 Creatinine 0.73 - 1.22 mg/dL 0.96 0.98 0.89 Sodium 136 - 144 mmol/L 140 141 139 Potassium 3.7 - 5.1 mmol/L 4.3 4.2 4.0 Chloride 97 - 105 mmol/L 103 102 102 CO2 22 - 30 mmol/L 26 27 26 Anion Gap 9 - 18 mmol/L 11 12 11 ALT 10 - 54 U/L 62 (H) eGFR- >60 >60 >60 eGFR-All Other Races . >60 >60 >60 Component Latest Ref Rng AND Units 02/18/2017 12/09/2017 WBC 3.70 - 11.00 k/uL 7.79 9.02 RBC 4.20 - 6.00 m/uL 5.34 5.34 Hemoglobin 13.0 - 17.0 g/dL 16.1 16.1 Hematocrit 39.0 - 51.0 % 47.1 45.3 MCV 80.0 - 100.0 fL 88.2 84.8 MCH 26.0 - 34.0 pG 30.1 30.1 MCHC 30.5 - 36.0 g/dL 34.2 35.5 RDW-CV 11.5 - 15.0 % 12.7 12.4 Platelet Count 150 - 400 k/uL 282 286 MPV 9.0 - 12.7 fL 10.2 10.3 Neut% % 59.3 59.7 Abs Neut (ANC) 1.45 - 7.50 k/uL 4.61 5.36 Lymph% % 27.1 27.6 Abs Lymph 1.00 - 4.00 k/uL 2.11 2.49 [place]% % 8.7 8.6 Abs [place] <0.87 k/uL 0.68 0.78 Eosin% % 4.4 3.7 Abs Eosin <0.46 k/uL 0.34 0.33 Baso% % 0.5 0.4 Abs Baso <0.11 k/uL 0.04 0.04 Nucleated Reds 0 /100 WBC 0.0 0.0 Absolute nRBC <0.01 k/uL <0.01 <0.01 Diff Type Auto Diff Auto Diff Component Latest Ref Rng AND Units 09/27/2017 03/05/2021 Hemoglobin A1C 4.3 - 5.6 % 5.0 5.5 Estimated Average Glucose mg/dL 97 111 Component Latest Ref Rng AND Units 06/29/2017 Cholesterol, Total <200 mg/dL 133 Triglyceride <150 mg/dL 85 HDL Cholesterol >39 mg/dL 32 (L) LDL Cholesterol <100 mg/dL 84 Non HDL Cholesterol <130 mg/dL 101 Fasting Time hrs 12 VLDL Cholesterol <30 mg/dL 17 TC:HDL Ratio <5.10 4.16 LDL:HDL Ratio <2.54 2.63 (H) HISTORIES FAMILY HISTORY Problem Relation Age of Onset - Heart Maternal Grandfather PAST MEDICAL HISTORY Diagnosis Date - Atrial fibrillation (HCC) - Hypertension - Other specified disorder of gallbladder - Trigger finger 02/16/2010 RT 3RD AND 4TH FINGERS - Trigger finger (acquired) 03/09/2010 LEFT 3RD AND 4TH FINGER PAST SURGICAL HISTORY Procedure Laterality Date - CARPAL TUNNEL Bilateral - INCISE FINGER TENDON SHEATH 02/16/2010 RT 3RD AND 4TH FINGERS - INCISE FINGER TENDON SHEATH 03/09/2010 LEFT 3RD AND 4TH FINGER - LAP CHOLECYSTECT/CHOLANGIOGR APHY 11/20/07 - PAST SURGICAL HISTORY OF Right knee scope Social History Tobacco Use - Smoking status: Never Smoker - Smokeless tobacco: Never Used Substance Use Topics - Alcohol use: Yes Comment: occasionally - Drug use: No ACTIVE PROBLEM LIST Essential Hypertension, Benign Trigger Finger Paroxysmal Atrial Fibrillation (Hcc) Rupture of Left Distal Biceps Tendon Biceps Tendon Rupture, Left, Initial Encounter Morbidly Obese (Hcc) Current Outpatient Medications Medication Sig Dispense Refill - hydroCHLOROthiazide (HYDRODIURIL, ESIDRIX) 25 mg tablet Take 1 tablet by mouth once daily. 90 tablet 3 - metoprolol succinate ER (TOPROL XL) 100 mg Take 1 tablet by mouth once daily. 30 tablet 1 - aspirin 325 mg tablet Take 325 mg by mouth once daily. - Azelastine HCl (OPTIVAR) 0.05 % ophthalmic solution Use 1 Drop in both eyes twice daily. (Patient not taking: Reported on 02/16/2021 ) 1 Bottle 0 - losartan (COZAAR) 100 mg tablet Take 1 tablet by mouth once daily. 90 tablet 3 - diazePAM (VALIUM) 10 mg tablet Take 10 mg by mouth every 6 hours as needed (back spasms). (Patient not taking: Reported on 02/16/2021) No current facility-administered medications for this visit. HEPATITIS C SCREENING Never don (more content not included)... Normal [facility] Basic Metabolic Panlon 03-05 Anion gap [Moles/Vol] 11 mmol/L Normal 9-18 [facility] Comment on above: Performed By: #### H STELLA BMP ####[facility] [place], [place] [phone] Calcium [Mass/Vol] 9.7 mg/dL Normal 8.5-10.2 [facility] Comment on above: Performed By: #### Rhianna DOUGLAS BMP ####[facility] [place], [place] [phone] Chloride [Moles/Vol] 102 mmol/L Normal 97-105 [facility] Comment on above: Performed By: #### H STELLA BMP ####[facility] [place], [place] [phone] CO2 [Moles/Vol] 26 mmol/L Normal 22-30 [facility] Comment on above: Performed By: #### H STELLA, BMP ####[facility] [place], [place] [phone] Creatinine [Mass/Vol] 0.89 mg/dL Normal 0.73-1.22 [facility] Comment on above: Performed By: #### Rhianna STELLA, BMP ####[facility] [place], [place] [phone] eGFR- Amer. >60 Normal [facility] Comment on above: Performed By: #### H STELLA, BMP ####[facility] [place], [place] [phone] eGFR-All Other Races >60 Normal [facility] Comment on above: Result Comment: eGFR (Estimated GFR) Units of measure: mL/min/1.73 meters squared eGFR is derived from the reexpressed MDRD Study equation using the following parameters: serum creatinine, age, gender and race. The creatinine assay has been calibrated to be traceable to IDMS. An eGFR <60 mL/min/1.73m2 for >3 months is consistent with chronic kidney disease. Refer to KDOQI guidelines for clinical interpretation. In patients with unstable renal function, e.g. those with acute kidney injury, the eGFR may not accurately reflect actual GFR. Note: On 05/09/2021, the eGFR calculation will be updated to the NKF-ASN Task Force recommended 2020 CKD-EPI creatinine equation which does not include a race variable. For more information or to access a 2020 CKD-EPI calculator, visit the National Kidney Foundation website at kidney.org/professionals/kdoqi/gfr_calculator. Performed By: #### H STELLA, BMP ####[facility] [place], [place] [phone] Glucose [Mass/Vol] 148 mg/dL High 74-99 [facility] Comment on above: Result Comment: The [place] Diabetes Association (ADA) provides guidance for cutoff values for fasting glucose and random glucose. The ADA defines fasting as no caloric intake for at least 8 hours. Fasting plasma glucose results between 100 to 125 mg/dL indicate increased risk for diabetes (prediabetes). Fasting plasma glucose results greater than or equal to 126 mg/dL meet the criteria for diagnosis of diabetes. In the absence of unequivocal hyperglycemia, results should be confirmed by repeat testing. In a patient with classic symptoms of hyperglycemia or hyperglycemic crisis, random plasma glucose results greater than or equal to 200 mg/dL meet the criteria for diagnosis of diabetes. Reference: Standards of Medical Care in Diabetes 2016, [place] Diabetes Association. Diabetes Care. 2016.39(Suppl 1). Performed By: #### H STELLA, MANN ####[address] [phone] Potassium [Moles/Vol] 4.0 mmol/L Normal 3.7-5.1 [facility] Comment on above: Performed By: #### H DARBY1C, BMP ####[address] [phone] Sodium [Moles/Vol] 139 mmol/L Normal 136-144 [facility] Comment on above: Performed By: #### H STELLA, BMP ####[address] [phone] Urea nitrogen [Mass/Vol] 12 mg/dL Normal 9-24 [facility] Comment on above: Performed By: #### H STELLA, BMP ####[address] [phone] Hemoglobin A1con 03-05-2021 Glucose [Mass/Vol] 111 mg/dL Normal [facility] Comment on above: Result Comment: eAG: (Estimated average glucose) is a calculated value from HgbA1c and is assisted sales representative of the average blood glucose level in the last 2-3 month period. Performed By: #### H BA1C, BMP ####[address] [phone] HbA1c (Bld) [Mass fraction] 5.5 % Normal 4.3-5.6 [facility] Comment on above: Result Comment: Amer [place] Diabetes Association guidelines indicate that patients with HgbA1c in the range 5.7-6.4% are at increased risk for development of diabetes, and intervention by lifestyle modification may be beneficial. HgbA1c greater or equal to 6.5% is considered diagnostic of diabetes. Performed By: #### H STELLA, [facility] ####[facility] [place], [place] [phone] CNOVon 02-16-2021 CNOV Office Visit (UCWSTR ) -------- KRISTOPHER POLO ([id number]) 1970 M [facility] Date Time Provider Department 02/16/21 11:45 AM GHULAM ORTEGA [facility] During your visit today, we recorded the following information about you: Temperature Pulse Respiration Blood pressure 98.2 degrees 74/minute 13/minute 144/100 Weight 146.6 kg Ghulam Ortega MD 02/16/2021 12:57 PM Signed Patient presents with: Knee Pain: (LT) knee pain, intermittent pain rated 8, dnied injury Back Pain: pain rated 2, ongoing x8 yrs HPI: Left knee pain: Duration: 1 year, intermittent waxing and waning. Location: Left knee Character: sharp Radiation: No. Aggravating: bending, standing and walking Relieving: rest Pain relievers: Tried multiple Associated: Intermittent swelling Pertinent negatives: Denies locking, giving out, known injury MEDICATIONS: aspirin 325 mg tablet Take 325 mg by mouth once daily. Azelastine HCl (OPTIVAR) 0.05 % ophthalmic solution Use 1 Drop in both eyes twice daily. metoprolol succinate ER (TOPROL XL) 100 mg Tb24 Take 1 tablet by mouth once daily. losartan (COZAAR) 100 mg tablet Take 1 tablet by mouth once daily. hydroCHLOROthiazide (HYDRODIURIL, ESIDRIX) 25 mg tablet Take 1 tablet by mouth once daily. diazePAM (VALIUM) 10 mg tablet Take 10 mg by mouth every 6 hours as needed (back spasms). ALLERGIES: ALLERGIES Allergen Reactions - Lisinopril Cough - Milk - Paper Tape [Other] VITALS: BP 144/100 (BP Site: Left Arm, BP Position: Sitting) Pulse 74 Temp 36.8 ?C (98.2 ?F) (Temporal Artery) Resp 13 Wt (!) 146.6 kg (323 lb 3.2 oz) BMI 47.04 kg/m? PHYSICAL EXAM: GEN: pleasant, no acute distress, alert HEENT: PERRL, EOMI, MMM NECK: supple, HEART: regular rate, regular rhythm, no murmurs LUNGS: clear to auscultation, no wheezes or crackles, no increased WOB EXT: no clubbing, no cyanosis, no edema KNEE: left. No effusion or deformity. FROM with pain. No crepitus. medial joint line and popliteal tenderness. Stable to varus and valgus strain. Negative anterior drawer test. Negative posterior drawer test. Antalgic gait improves after initial get up and go. ASSESSMENT/PLAN: 1. Chronic pain of left knee - ICD9: 719.46, 338.29, ICD10: M25.562, G89.29 (primary diagnosis) - XR KNEE GENERAL 4V AP BOTH/PA BOTH/LAT/MERC LEFT - degenerative changes. Beneficial treatments could include weight loss, PT, injection, analgesia, bracing. Avoid NSAIDs with uncontrolled HTN. - CONSULT TO ORTHOPAEDICS 2. Essential hypertension - ICD9: 401.9, ICD10: I10 - poor control - Noncompliance, off medications, last seen 2018. He has follow up with his PCP in a month. He would like to resume - METOPROLOL SUCCINATE ER 100 MG TABLET,EXTENDED RELEASE 24 HR Ghulam Ortega MD Referring Provider: SELF [200] Allergies As of Date: 02/16/2021 Noted Allergy Reaction LISINOPRIL 06/14/2017 3 - Cough MILK 01/19/2005 paper tape [Other] 11/07/2007 Date Reviewed: 02/16/2021 Reviewed by: Alanna Bowman LPN - Fully Assessed Reason for Visit: Knee Pain [132] Cmt: (LT) knee pain, intermittent pain rated 8, dnied injury Back Pain [12] Cmt: pain rated 2, ongoing x8 yrs Primary Visit Diagnosis:Chronic pain of left knee [M25.562, G89.29] Other Visit Diagnosis:Essential hypertension [I10] Order(s):XR KNEE GENERAL 4V AP BOTH/PA BOTH/LAT/MERC LEFT [1976587] Order #: [id number] FUTURE CONSULT TO ORTHOPAEDICS [90] Order #: [id number]: 1 FUTURE metoprolol succinate ER (TOPROL XL) 100 mgTake 1 tablet by mouth once daily.Disp: 30 tabletRfl: 1 Prescriptions as of 02/16/2021 - aspirin 325 mg tablet Take 325 mg by mouth once daily. - metoprolol succinate ER (TOPROL XL) 100 mg Take 1 tablet by mouth once daily. - Azelastine HCl (OPTIVAR) 0.05 % ophthalmic solution Use 1 Drop in both eyes twice daily. - losartan (COZAAR) 100 mg tablet Take 1 tablet by mouth once daily. - hydroCHLOROthiazide (HYDRODIURIL, ESIDRIX) 25 mg tablet Take 1 tablet by mouth once daily. - diazePAM (VALIUM) 10 mg tablet Take 10 mg by mouth every 6 hours as needed (back spasms). Problem List As Of Date 02/16/2021 Noted Resolved BENIGN HYPERTENSION [I10] 01/19/2005 Trigger finger [M65.30] 01/20/2010 Paroxysmal atrial fibrillation (HCC) [I48.0] 06/14/2017 Rupture of left distal biceps tendon [S46.212A] 12/06/2017 Biceps tendon rupture, left, initial encounter *12/06/2017 Morbidly obese (HCC) [E66.01] 12/09/2017 Prescriptions ordered this encounter Disp Refills Start End METOPROLOL SUCCINATE ER 100 MG TABLE* 30 t* 1 02/16/2021 Route: ORAL Sig: Take 1 tablet by mouth once daily. Medications Discontinued During This Encounter Prescriptions - metoprolol succinate ER (TOPROL XL) 100 mg Tb24 (Discontinued) Reported on 02/16/2021 Encounter Status:Closed by GHULAM ORTEGA on 02/16/21 [facility] XR KNEE 4V AP/PA BOTH+LAT/ME R LTon 02-16-2021 XR KNEE 4V AP/PA BOTH+LAT/OMAR LT * * *Final Report* * * DATE OF EXAM: Feb 16 2021 12:21PM WOX 5202 - XR KNEE 4V AP/PA BOTH+LAT/OMAR LT / PROCEDURE REASON: multiple diagnoses * * * * Physician Interpretation * * * * Indication: Left knee pain Comparison: None AP, PA, lateral and merchant views of the left knee are obtained. AP, PA and merchant views of the right knee are included. There is normal architecture and mineralization of the bones. There is no acute fracture or dislocation. There is narrowing of the lateral compartment and patellofemoral compartments of the right knee with subchondral sclerosis and marginal osteophytes. There is narrowing of the left patellofemoral compartment with marginal osteophytes. Impression: 1. No acute fracture or dislocation. 2. Degenerative disease of bilateral knees. Real Estate Management Specialist: ROGER Transcribe Date/Time: Feb 16 2021 12:34P Dictated by : MYESHA MCGOWAN MD This examination was interpreted and the report reviewed and electronically signed by: MYESHA MCGOWAN MD on Feb 16 2021 12:36PM EST [id number] Normal [facility] XR Knee - left 4 Viewson * * *Final Report* * * DATE OF EXAM: Feb 16 2021 12:21PM WOX 5202 - XR KNEE 4V AP/PA BOTH+LAT/OMAR LT / PROCEDURE REASON: multiple diagnoses * * * * Physician Interpretation * * * * Indication: Left knee pain Comparison: None AP, PA, lateral and merchant views of the left knee are obtained. AP, PA and merchant views of the right knee are included. There is normal architecture and mineralization of the bones. There is no acute fracture or dislocation. There is narrowing of the lateral compartment and patellofemoral compartments of the right knee with subchondral sclerosis and marginal osteophytes. There is narrowing of the left patellofemoral compartment with marginal osteophytes. Impression: 1. No acute fracture or dislocation. 2. Degenerative disease of bilateral knees. Real Estate Management Specialist: PSCJannet Transcribe Date/Time: Feb 16 2021 12:34P Dictated by : MYESHA MCGOWAN MD This examination was interpreted and the report reviewed and electronically signed by: MYESHA MCGOWAN MD on Feb 16 2021 12:36PM EST DIVISION OF RADIOLOGY [facility] * * *Final Report* * * DATE OF EXAM: Feb 16 2021 12:21PM WOX 5202 - XR KNEE 4V AP/PA BOTH+LAT/OMAR LT / PROCEDURE REASON: multiple diagnoses * * * * Physician Interpretation * * * * Indication: Left knee pain Comparison: None AP, PA, lateral and merchant views of the left knee are obtained. AP, PA and merchant views of the right knee are included. There is normal architecture and mineralization of the bones. There is no acute fracture or dislocation. There is narrowing of the lateral compartment and patellofemoral compartments of the right knee with subchondral sclerosis and marginal osteophytes. There is narrowing of the left patellofemoral compartment with marginal osteophytes. Impression: 1. No acute fracture or dislocation. 2. Degenerative disease of bilateral knees. Real Estate Management Specialist: ROGER Transcribe Date/Time: Feb 16 2021 12:34P Dictated by : MYESHA MCGOWAN MD This examination was interpreted and the report reviewed and electronically signed by: MYESHA MCGOWAN MD on Feb 16 2021 12:36PM [facility] Radiology Study observation (narrative) [facility] XR Knee - left 4 ViewsOrdere d By: Ccf Provider on 02-16-2021 [facility] Encounters Encounter Date Encounter Type Care Provider Facility Start: 11-23-2023 End: 11-23-2023 Emergency department patient visit Yariel Philippe Facility:[facility] Start: 04-20-2021 End: 04-20-2021 ambulatory JANAY MENCHACA Facility:[facility] Start: 04-17-2021 End: 04-17-2021 ambulatory JANAY Mckeon MICHELLE Facility:[facility] Start: 04-09-2021 End: 04-09-2021 ambulatory JANAY Mckeon MICHELLE Facility:[facility] Start: 03-12-2021 End: 03-12-2021 ambulatory JANAY Mckeon MICHELLE [facility] Start: 03-05-2021 End: 03-05-2021 ambulatory JANAY cMkeon MICHELLE [facility] Start: 02-16-2021 End: 02-16-2021 ambulatory JANAY Mckeon MICHELLE [facility] Start: 02-16-2021 End: 02-16-2021 Subsequent hospital visit by physician [facility] Work Phone: Radiology Comment on above: Chronic pain of left knee [M25.562, G89.29] Procedures Date Procedure Procedure Detail Performing Clinician Start: 02-16-2021 Radiologic exam knee complete 4/more views Ghulam Ortega MD Work Phone: Start: 06-29-2017 Lipid 1996 panel - S gordon or Plasma [facility] [place] Work Phone: Plan of Treatment Date Care Activity Detail Author Start: 03-05-2024 Diabetes Screening Diabetes Screenin g [facility] Start: 11-13-2023 Covid-19 Vaccine () Covid-19 Vaccine () [facility] Start: 11-13-2023 Influenza vaccination Influenza Vacc ine (#1) [facility] Start: 06-29-2022 Lipid panel Lipid Screening [facility] Start: 04-09-2022 Annual PCP Team [employer] Trimmer mariel Disease Visit Annual PCP Team Chronic Disease Visit [facility] Start: 2020 Shingrix Vaccine (1 of 2) Zuniga grix Vaccine (1 of 2) [facility] Start: 08-26-2018 Urine microalbumin profile DTa P,Tdap,Td Vaccine (2 - Td or Tdap) [facility] Start: 09-03-2015 Screening for malign ant neoplasm of colon [facility] Start: 1988 Anxiety Screening Anxiety Screening [facility] Start: 1988 BP Controlled (<130/80) BP Controlle d (<130/80) [facility] Start: 1988 Depression Screening Depression Scre ening [facility] Start: 1988 Hepatitis C [facility] Start: 1988 HIV screening HIV Screening [facility] Immunizations Immunization Date Immunization Notes Care Provider Fa bayronty 01-26-2021 influenza, injectabl e, quadrivalent, preservative free [facility] [place] Work Phone: [facility] 01-26-2021 influenza virus vacc ine, unspecified formulation [facility] [place] Work Phone: [facility] 04-09-2020 COVID-19 original vaccine, full dose, monovalent (MODERNA) [facility] [place] Work Phone: [facility] 03-12-2020 COVID-19 original vaccine, full dose, monovalent (MODERNA) [facility] [place] Work Phone: [facility] 02-07-2018 influenza virus vacc ine, unspecified formulation [facility] [place] Work Phone: [facility] 01-07-2018 influenza virus vacc ine, unspecified formulation [facility] [place] Work Phone: [facility] 01-07-2017 influenza virus vacc ine, unspecified formulation [facility] [place] Work Phone: [facility] 12-09-2015 influenza virus vacc ine, unspecified formulation [facility] [place] Work Phone: [facility] 12-09-2014 influenza virus vacc ine, unspecified formulation [facility] [place] Work Phone: [facility] 12-12-2013 influenza, seasonal, injectable, preservative free [facility] [place] Work Phone: [facility] 08-26-2008 tetanus toxoid, redu adelina diphtheria toxoid, and acellular pertussis vaccine, adsorbed [facility] [place] Work Phone: [facility] 05-11-2004 hepatitis B vaccine, adult dosage [facility] [place] Work Phone: [facility] 11-20-2003 hepatitis B vaccine, adult dosage [facility] [place] Work Phone: [facility] 10-14-2003 hepatitis B vaccine, adult dosage [facility] [place] Work Phone: [facility] 10-14-2003 TD(adult) unspecifie d formulation [facility] [place] Work Phone: [facility] Payers Date Payer Category Payer Self-pay 2023 Unknown [id number] 2021 Unknown [id number] 2015 Unknown [id number] 2015 Unknown EHP S ZZZEHP N ON STAFF / EHP CC Non-Staff FT/PT [id number] 2015-[address] [place] [id number] HMO [id number] Unknown [id number] Social History Date Type Detail Facility Start: 06-14-2017 Tobacco smoking stat us NCIS Never smoked tobacco [facility] Start: 06-14-2017 Tobacco use and exposure Smoke less tobacco non-user [facility] Start: 09-28-2018 Alcoholic beverage intake Curr ent drinker of alcohol (finding) [facility] Start: 09-28-2018 End: 02-20-2020 History of Social function [facility] Start: 09-28-2018 End: 02-20-2020 Tobacco use panel [facility] Adult Depression Screening Assessment 1 [facility] Start: 1970 Sex assigned at Male C [facility] Start: 02-16-2021 Sexual orientation Heterosexual (fin ding) [facility] Start: 01-17-2021 End: 02-16-2021 Exposure to SARS-CoV-2 (event) Not sure [facility] Medical Equipment Procedure Code Equipment Code Equipment Origin al Text Equipment Identifier Dates Kit Arthroscopic Fixation Button Drill Help Desk Internship Screw Sterile - [id number] Start: 12-13-2017 Clinical Notes 02-16-2021 to 12-16-2021 Priya Espinosa RT(R) - 02/16/2021 12:10 PM EST Note Date & Type Note Facility 12-16-2021 Note HNO ID: [id number] Author: Jil Iglesias PT Service: ? Author Type: Physical Therapist Type: Progress Notes Filed: 12/16/2021 11:37 AM Note Text: 12/16/2021 [facility] PHYSICAL THERAPY DISCONTINUANCE OF CARE Plan of Care Period: Start of Care Date: 04/17/21 Last Visit Date: 04/17/2021 Therapy Program: Patient did not return for follow up care as planned. Please refer to last visit note for interventions provided for this episode of care. Assessment: Unable to formally assess goal achievement. Reason for Discontinuation of Care: Patient has not returned to therapy or scheduled additional follow-up appointments. Jil Iglesias PT [facility] 04-20-2021 Note HNO ID: [id number] Author: May Vázquez MD Service: ? Author Type: Physician Type: Progress Notes Filed: 04/20/2021 12:59 PM Note Text: May Vázquez MD Department of Orthopaedics [facility] [address] [place] [address] Dept: [phone] Dept April 20, 2021 CHIEF COMPLAINT: Knee Pain of the Left Knee and Referred by Thiago Limon HPI Patient denies any pain today. States he can have pain on the inside of his left knee. 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 States when he is on his feet working 2 days in a row. He is unable to put pressure on that knee. Taking Valium for the pain when needed and helps sleep. X-ray done on 02/16/21. AMB ROOMING INTAKE FLOWSHEET DATA Risk Screening Do you have concerns about personal safety or safety in the home?: No ASSESSMENT: M25.562, G89.29 Chronic pain of left knee M25.562 Acute pain of left knee M25.462 Effusion of bursa of left knee PLAN: We had a lengthy discussion about knee osteoarthritis and the treatment options. He really needs to work significantly on his weight. We are going to try an anti-inflammatory and he may consider cortisone injection at some point. Not at this time. FOLLOW UP INSTRUCTIONS: As needed Mr. Kristopher Polo was advised as to contrast therapies and/or to take analgesics/anti-inflammatories as needed and all contraindications were reviewed. OBJECTIVE: Mr. Kristopher Polo is a pleasant 50 year old in no apparent distress. Gen:Ht 5' 10 (1.78m) Wt 324 lb (147.0kg) BMI 46.49 kg/(m2). nl development, Morbidly obese, no deformities ENT: Normocephalic, normal hearing, moist mucosa CV: Pulses:DP/PT= 2+ and symmetric, capillary refill < 2 secs, no peripheral edema/varicosities Skin: no rash, bruising or lesions. Good turgor. Psych: cooperative and appropriate, alert and oriented x 3, good mood and affect. Musculoskeletal: Patient walks with a mildly unsteady gait and slight antalgia to the left. He has a difficult exam from body habitus but does not have a significant effusion. Patellar tracking is laterally and has pain on the lateral facet as well as on compression testing. Some mild medial joint space tenderness as well as the distal femoral condyle. His motion is 5-120 degrees again limited by body habitus as opposed to pain. He has some mild medial joint space widening with valgus stress consistent with mild ligamentous laxity of the knee. Neurovascular exams intact. IMAGING: * * *Final Report* * * DATE OF EXAM: Feb 12:21PM ? WOX ? 5202 ?- ?XR KNEE 4V AP/PA BOTH+LAT/OMAR LT ?/ PROCEDURE REASON: multiple diagnoses ?? ? * * * * Physician Interpretation * * * * ?Indication: Left knee pain Comparison: ?None AP, PA, lateral and merchant views of the left knee are obtained. ?AP, PA and merchant views of the right knee are included. ?There is normal architecture and mineralization of the bones. ?There is no acute fracture or dislocation. ?There is narrowing of the lateral compartment and patellofemoral compartments of the right knee with subchondral sclerosis and marginal osteophytes. ?There is narrowing of the left patellofemoral compartment with marginal osteophytes. Impression: 1. ?No acute fracture or dislocation. 2. ?Degenerative disease of bilateral knees. Real Estate Management Specialist: ROGER ? Transcribe Date/Time: Feb 12:34P Dictated by : MYESHA MCGOWAN MD This examination was interpreted and the report reviewed and electronically signed by: MYESHA MCGOWAN MD on Feb 12:36PM ?EST Supporting Subjective Information Below: Past Medical History: PAST MEDICAL HISTORY Diagnosis Date - Atrial fibrillation (HCC) - Hypertension - Other specified disorder of gallbladder - Trigger finger 02/16/2010 RT 3RD AND 4TH FINGERS - Trigger finger (acquired) 03/09/2010 LEFT 3RD AND 4TH FINGER Past Surgical History: PAST SURGICAL HISTORY Procedure Laterality Date - CARPAL TUNNEL Bilateral - INCISE FINGER TENDON SHEATH 02/16/2010 RT 3RD AND 4TH FINGERS - INCISE FINGER TENDON SHEATH 03/09/2010 LEFT 3RD AND 4TH FINGER - LAPS SURG CHOLECYSTECTOMY W/CHOLANGIOGRAPHY 11/20/2007 - PAST SURGICAL HISTORY OF Right knee scope - PAST SURGICAL HISTORY OF Left bicepps rupture Family History: FAMILY HISTORY Problem Relation Age of Onset - Heart Mother - Hypertension Mother - Diabetes Mother - Hypertension Father - Diabetes Father - Heart Maternal Grandfather Social History: Social History Tobacco Use - Smoking status: Never Smoker - Smokeless tobacco: Never Used Vaping Use - Vaping Use: Never used Substance Use Topics - Alcohol use: Yes Comment: occasionally - Drug use: No Medications: Current Outpatient Medications Medication Sig - metoprolol succinate ER (TOPROL XL) 100 mg Take 1 tablet by mouth once daily. - verapamil SR (more content not included)... [facility] 04-17-2021 Note HNO ID: [id number] Author: Neil Contreras PT Service: ? Author Type: Physical Therapist Type: Progress Notes Filed: 04/17/2021 2:57 PM Note Text: Episode Visit Count: 1 Therapist That Will Oversee The Plan Of Care: Neil Contreras PT Start of Care Date: 04/17/21 Onset Date: 02/16/21 Patient Identified by Name and Date of : Yes REHABILITATION AND SPORTS THERAPY PHYSICAL THERAPY EVALUATION PLAN OF CARE: Assessment: Kristopher Polo presents with chief complaint of pain, swelling and limited AROM of L knee that interferes with squatting;kneeling;walking;rising from a chair;physical activities;weight bearing . He presents with impairments in ADL's, gait, independence in exercise, overall function, range of motion and strength. Prognosis for therapy is Good due to: Prognosis may be limited due to;current objective clinical presentation limited tolerance to activity;occupational demands (back pain). He will benefit from skilled therapy services to meet the goals established for this plan of care as noted below. Goals for Episode of Care: created on 04/17/21 through 05/29/21 Keith in home exercise program. Decrease swelling of L knee to symmetrical circumferential measurements. Patient will decrease pain to 0/10 with functional activities to allow patient to improve ambulation and standing tolerance for ADLs. Patient will increase active ROM of L knee to symmetrical and pain-free to allow pt to to improve performance of ADLs and to improve gait mechanics / gait pattern . Perform standing, walking, rising and working without pain. Increase strength of L knee to symmetrical with dynamometer testing for improved tolerance with rising and all standing activities. Normal gait. Patient Goals: Decrease pain, swelling and improve ROM so that he can resume prior functional level. Planned Interventions, Frequency, and Duration: Current Frequency: 2x/week Duration: 6 weeks Total Number of Visits Planned: 12 Planned Treatment Interventions: Therapeutic exercise (01557);Neuromuscular re-education (49853);Manual therapy (91953);Therapeutic activities (73757);Self-nursing home management (21636);Gait Training (74013);Patient/Family/Caregiver Education;Body Mechanics Training PLAN FOR NEXT VISIT: Review, correct and progress HEP to tolerance. Continue with active therex to address pain, ROM, strength and swelling of L knee. Continue with gait training as well prn. Patient demonstrates good understanding of plan of care and treatment. The above goals and plan of care were discussed and agreed upon by patient/family. SUBJECTIVE: Kristopher Polo is a 50 year old male seen today for intermittent pain and limited ROM in L knee. He attributes the pain and ROM limitations to swelling. He reports that WBing activities aggravate his pain. He locates pain at medial aspect of L knee. Patient Goals: Decrease pain, swelling and improve ROM so that he can resume prior functional level. 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 [employer] Main Recreation / Current Exercise: cuts wood and plays basketball Hobbies / Interests: basketball Home Environment Patient Lives With: Spouse Assistance Available: PRN Home Type: Multi-Level Entry To Home: Stairs Number Of Stairs Into Home: 1 Number Of Stairs To Bed/Bath: 12 Stairs to Bed/Bath with: Unilateral Rail Intake Information: Prescription present Previous Treatment: None Pain: Pain Pain Level: (0/10 at rest, 8/10 at worst) Pain Location: Knee - Left Description: Aching;Sharp Frequency: Intermittent;Walking;Standing Post Treatment Pain Post Treatment Pain Level: No Change PROMIS Scales Higher is Better 03/08/2021 GH Physical - Score 34.9 (Poor) GH Physical - Percentile 7 % GH Mental - Score 43.5 (Good) GH Mental - Percentile 26 % T-scores: mean of general population = 50. 5 points is clinically meaningfully difference Percentiles provide an indication of how the patient's score ranks in relation to the general population. Higher percentile rankings indicate better function/quality of life. 50th percentile is the average of the general population and indicates half of respondents had a worse score. T-scores: mean of general population = 50. 5 points is clinically meaningfully difference Percentiles provide an indication of how the patient's score ranks in relation to the general population. Higher percentile rankings indicate better function/quality of life. 50th percentile is the average of the general population and indicates half of respondents had a worse (more content not included)... [facility] 04-09-2021 Note HNO ID: [id number] Author: Joey Limon PA-C Service: ? Author Type: Physician Laboratory Supervisor Type: Progress Notes Filed: 04/09/2021 7:32 PM Note Text: 50 year old male with c/o BP recheck, left knee pain, and back pain BP checks not occurring at home. Pt has a cuff at home. Left knee pain new onset 2 yrs ago, comes and goes Works 60 hour weeks Battling hard 5-6 months with knee pain. Endorses swelling sharp tendon pain, pain behind the knee. Radiates down the calf, tightness in the thigh. Denies tingling or popping sensation. Has tried massage, hot pad, and elevation shows improvement Right knee pain 6-7 yrs ago after a basketball injury. ACL tear in the R knee with arthroscopic surgery Dr. Vaca. Relates iIntermittent piercing pain around the SI joint, worsening pain with long work days Has tried hot pads and stretching Back pain improved from last visit with manual therapy. Doing well today. HTN: Current meds: Mostly compliant with Verapamil and Metoprolol Patient is compliant with meds Mostly compliant Monitors bp at home: No, pt has a BP cuff Denies side effects: None Chest pain: None Dyspnea: No Edema: No. Palpitations: No. Syncope: No. Headache: No.- Improved with increased water intake Dizziness: No. Last 3 Encounter BP Readings: Date: BP: 04/09/2021 158/110 03/12/2021 180/120 02/16/2021 144/100 Last 2 Encounter Wt Readings: Date: Wt: 04/09/2021 147 kg (324 lb) 03/12/2021 147.4 kg (325 lb) HISTORIES FAMILY HISTORY Problem Relation Age of Onset - Heart Maternal Grandfather PAST MEDICAL HISTORY Diagnosis Date - Atrial fibrillation (HCC) - Hypertension - Other specified disorder of gallbladder - Trigger finger 02/16/2010 RT 3RD AND 4TH FINGERS - Trigger finger (acquired) 03/09/2010 LEFT 3RD AND 4TH FINGER PAST SURGICAL HISTORY Procedure Laterality Date - CARPAL TUNNEL Bilateral - INCISE FINGER TENDON SHEATH 02/16/2010 RT 3RD AND 4TH FINGERS - INCISE FINGER TENDON SHEATH 03/09/2010 LEFT 3RD AND 4TH FINGER - LAPS SURG CHOLECYSTECTOMY W/CHOLANGIOGRAPHY 11/20/07 - PAST SURGICAL HISTORY OF Right knee scope Social History Tobacco Use - Smoking status: Never Smoker - Smokeless tobacco: Never Used Substance Use Topics - Alcohol use: Yes Comment: occasionally - Drug use: No ACTIVE PROBLEM LIST Essential Hypertension, Benign Trigger Finger Paroxysmal Atrial Fibrillation (Hcc) Rupture of Left Distal Biceps Tendon Biceps Tendon Rupture, Left, Initial Encounter Morbidly Obese (Hcc) Current Outpatient Medications Medication Sig Dispense Refill - metoprolol succinate ER (TOPROL XL) 100 mg Take 1 tablet by mouth once daily. 90 tablet 3 - verapamil SR (CALAN SR) 120 mg CR tablet Take 1 tablet by mouth daily at bedtime. 30 tablet 2 - aspirin 325 mg tablet Take 325 mg by mouth once daily. No current facility-administered medications for this visit. HEPATITIS C SCREENING Never done HIV SCREENING Never done BP CONTROLLED (<130/80) Never done COLORECTAL CANCER SCREENING Never done DTAP,TDAP,TD(2 - Td or Tdap) due on 08/26/2018 SHINGRIX VACCINE(1 of 2) Never done COVID-19 VACCINE(3 - Booster for Moderna series) due on 09/07/2020 EXAM: BP 158/110 Pulse 91 Resp 20 Wt (!) 147 kg (324 lb) SpO2 98% BMI 47.16 kg/m? Pleasant obese adult man in no acute distress. Alert and oriented all spheres. Normal affect and cognition. Speech normal. No deficits to learning or comprehension. Skin warm, dry, pink to lips and nailbeds. Normal turgor. Respirations regular and unlabored. Standing posture with even hip and shoulder, no scoliosis. Able to forward flex to toes. No innominate dysfunction today. Extrem: no clubbing or cyanosis. Edema: 0-1/4+ ankles Extremities are warm and pink with prompt capillary refill. Left knee with ballottable effusion infrapatellar, popliteal swelling > right. Negative patellar apprehension, negative bounce. No pain or laxity with varus or valgus stress. Negative anterior drawer, Se, Letty, Thessaly testing. Reviewed 02.16.2021 xrays again. ASSESSMENT/PLAN: 1. Acute pain of left knee - ICD9: 719.46, ICD10: M25.562 (primary diagnosis) Suspect chronic sprain without obvious joint laxity, mild left knee joint space narrowing r/t obesity and chronic walking/ standing in job. - CONSULT TO PHYSICAL THERAPY 2. Essential hypertension - ICD9: 401.9, ICD10: I10 - Resistant hypertension - Continue current medication(s) - Increase verapamil to 240 XL daily: recheck 4 weeks. - Recommended regular aerobic exercise. - Recommend home blood pressure monitoring, to bring results in on next visit - Goal of BP <130/80 - METOPROLOL SUCCINATE ER 100 MG TABLET,EXTENDED RELEASE 24 HR - CONSULT TO PHYSICAL THERAPY 3. Effusion of bursa of left knee - ICD9: 719.06, ICD10: M25.462 Discussed options: agrees to PT. Declined steroid oral or injection. Would like to see o (more content not included)... [facility] 03-12-2021 Note HNO ID: [id number] Author: Joey Limon PA-C Service: ? Author Type: Physician Laboratory Supervisor Type: Progress Notes Filed: 03/12/2021 8:55 PM Note Text: 50 year old male with c/o exacerbation of right sided back pain which has been chronic. Battling left knee over last 6 months or more. If worked multiple days, knee would swell, hobbling at work. 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 Has been off about a week. 02/16/21 UC XR Hx meniscal repair right knee Dr. Vaca. Identifies chronic tight hamstrings. Using heating pad. Not taking BP med for awhile- no real good reason why. Not drinking water Was having headaches, thought related to HCTZ so stopped. Can't give a reason for stopping metoprolol Eats what is convenient. Knows diet is poor. Hx pAF one episode. Denies chest pain, palpitations, syncopal or near syncopal events, dyspnea. Patient is short of breath with exercise but not labored. Component Latest Ref Rng AND Units 02/18/2017 06/29/2017 03/05/2021 Protein, Total 6.3 - 8.0 g/dL 7.3 Albumin 3.9 - 4.9 g/dL 4.5 Calcium 8.5 - 10.2 mg/dL 8.9 9.6 9.7 Bilirubin, Total 0.2 - 1.3 mg/dL 0.5 Alkaline Phosphatase 36 - 108 U/L 65 AST 14 - 40 U/L 33 Glucose 74 - 99 mg/dL 103 (H) 106 (H) 148 (H) BUN 9 - 24 mg/dL 12 13 12 Creatinine 0.73 - 1.22 mg/dL 0.96 0.98 0.89 Sodium 136 - 144 mmol/L 140 141 139 Potassium 3.7 - 5.1 mmol/L 4.3 4.2 4.0 Chloride 97 - 105 mmol/L 103 102 102 CO2 22 - 30 mmol/L 26 27 26 Anion Gap 9 - 18 mmol/L 11 12 11 ALT 10 - 54 U/L 62 (H) eGFR- >60 >60 >60 eGFR-All Other Races . >60 >60 >60 Component Latest Ref Rng AND Units 02/18/2017 12/09/2017 WBC 3.70 - 11.00 k/uL 7.79 9.02 RBC 4.20 - 6.00 m/uL 5.34 5.34 Hemoglobin 13.0 - 17.0 g/dL 16.1 16.1 Hematocrit 39.0 - 51.0 % 47.1 45.3 MCV 80.0 - 100.0 fL 88.2 84.8 MCH 26.0 - 34.0 pG 30.1 30.1 MCHC 30.5 - 36.0 g/dL 34.2 35.5 RDW-CV 11.5 - 15.0 % 12.7 12.4 Platelet Count 150 - 400 k/uL 282 286 MPV 9.0 - 12.7 fL 10.2 10.3 Neut% % 59.3 59.7 Abs Neut (ANC) 1.45 - 7.50 k/uL 4.61 5.36 Lymph% % 27.1 27.6 Abs Lymph 1.00 - 4.00 k/uL 2.11 2.49 [place]% % 8.7 8.6 Abs [place] <0.87 k/uL 0.68 0.78 Eosin% % 4.4 3.7 Abs Eosin <0.46 k/uL 0.34 0.33 Baso% % 0.5 0.4 Abs Baso <0.11 k/uL 0.04 0.04 Nucleated Reds 0 /100 WBC 0.0 0.0 Absolute nRBC <0.01 k/uL <0.01 <0.01 Diff Type Auto Diff Auto Diff Component Latest Ref Rng AND Units 09/27/2017 03/05/2021 Hemoglobin A1C 4.3 - 5.6 % 5.0 5.5 Estimated Average Glucose mg/dL 97 111 Component Latest Ref Rng AND Units 06/29/2017 Cholesterol, Total <200 mg/dL 133 Triglyceride <150 mg/dL 85 HDL Cholesterol >39 mg/dL 32 (L) LDL Cholesterol <100 mg/dL 84 Non HDL Cholesterol <130 mg/dL 101 Fasting Time hrs 12 VLDL Cholesterol <30 mg/dL 17 TC:HDL Ratio <5.10 4.16 LDL:HDL Ratio <2.54 2.63 (H) HISTORIES FAMILY HISTORY Problem Relation Age of Onset - Heart Maternal Grandfather PAST MEDICAL HISTORY Diagnosis Date - Atrial fibrillation (HCC) - Hypertension - Other specified disorder of gallbladder - Trigger finger 02/16/2010 RT 3RD AND 4TH FINGERS - Trigger finger (acquired) 03/09/2010 LEFT 3RD AND 4TH FINGER PAST SURGICAL HISTORY Procedure Laterality Date - CARPAL TUNNEL Bilateral - INCISE FINGER TENDON SHEATH 02/16/2010 RT 3RD AND 4TH FINGERS - INCISE FINGER TENDON SHEATH 03/09/2010 LEFT 3RD AND 4TH FINGER - LAP CHOLECYSTECT/CHOLANGIOGRAPHY 11/20/07 - PAST SURGICAL HISTORY OF Right knee scope Social History Tobacco Use - Smoking status: Never Smoker - Smokeless tobacco: Never Used Substance Use Topics - Alcohol use: Yes Comment: occasionally - Drug use: No ACTIVE PROBLEM LIST Essential Hypertension, Benign Trigger Finger Paroxysmal Atrial Fibrillation (Hcc) Rupture of Left Distal Biceps Tendon Biceps Tendon Rupture, Left, Initial Encounter Morbidly Obese (Hcc) Current Outpatient Medications Medication Sig Dispense Refill - hydroCHLOROthiazide (HYDRODIURIL, ESIDRIX) 25 mg tablet Take 1 tablet by mouth once daily. 90 tablet 3 - metoprolol succinate ER (TOPROL XL) 100 mg Take 1 tablet by mouth once daily. 30 tablet 1 - aspirin 325 mg tablet Take 325 mg by mouth once daily. - Azelastine HCl (OPTIVAR) 0.05 % ophthalmic solution Use 1 Drop in both eyes twice daily. (Patient not taking: Reported on 02/16/2021 ) 1 Bottle 0 - losartan (COZAAR) 100 mg tablet Take 1 tablet by mouth once daily. 90 tablet 3 - diazePAM (VALIUM) 10 mg tablet Take 10 mg by mouth every 6 hours as needed (back spasms). (Patient not taking: Reported on 02/16/2021) No current facility-administered medications for this visit. HEPATITIS C SCREENING Never done HIV SCREENING Never done BP CONTROLLED (<130/80) Never done COLORECTAL CANCER SCREENING Never done DTAP,TDAP,TD(2 - Td or Tdap) due on 08/26/2018 ANNUAL PCP TEAM CHRONIC DISEASE VISIT due on 09/29/2019 SHINGRIX VACCINE(1 of 2) Never done COVID-19 VACCINE(3 (more content not included)... [facility] 03-03-2021 Note Patient Outreach (IN TMMN) KRISTOPHER POLO ([id number]) 1970 [facility] Date Time Provider Department 03/03/21 JANAY MENCHACA During your visit today, we recorded the following information about you: Allergies As of Date: 03/03/2021 Noted Allergy Reaction LISINOPRIL 06/14/2017 3 - Cough MILK 01/19/2005 paper tape [Other] 11/07/2007 Date Reviewed: 02/16/2021 Reviewed by: Alanna Bowman LPN - Fully Assessed Visit Diagnoses:Morbidly obese (HCC) [E66.01] Essential hypertension, benign [I10] Order(s):SCHEDULE LAB TESTING [2147486] Order #: [id number] FUTURE HGB A1C [KHPOC0O] Order #: [id number] FUTURE BASIC METABOLIC PNL [SQBMP] Order #: [id number] FUTURE Prescriptions as of 03/06/2021 - aspirin 325 mg tablet Take 325 mg by mouth once daily. - metoprolol succinate ER (TOPROL XL) 100 mg Take 1 tablet by mouth once daily. - Azelastine HCl (OPTIVAR) 0.05 % ophthalmic solution Use 1 Drop in both eyes twice daily. - losartan (COZAAR) 100 mg tablet Take 1 tablet by mouth once daily. - hydroCHLOROthiazide (HYDRODIURIL, ESIDRIX) 25 mg tablet Take 1 tablet by mouth once daily. - diazePAM (VALIUM) 10 mg tablet Take 10 mg by mouth every 6 hours as needed (back spasms). Problem List As Of Date 03/03/2021 Noted Resolved BENIGN HYPERTENSION [I10] 01/19/2005 Trigger finger [M65.30] 01/20/2010 Paroxysmal atrial fibrillation (HCC) [I48.0] 06/14/2017 Rupture of left distal biceps tendon [S46.212A] 12/06/2017 Biceps tendon rupture, left, initial encounter *12/06/2017 Morbidly obese (HCC) [E66.01] 12/09/2017 Encounter Status:Closed by EPIC, PRODUSER on 03/06/21 [facility] 02-16-2021 Note HNO ID: [id number] Author: RT Yolanda(R) Service: Nuclear Medicine Author Type: Technologist Type: Progress Notes Filed: 02/16/2021 12:20 PM Note Text: Radiology Service Progress Note PATIENT NAME: Kristopher Polo DATE OF SERVICE: February 16, 2021 TIME: 12:03 PM PATIENT IDENTITY VERIFICATION COMPLETED USING TWO (2) IDENTIFIERS: Name and Date of confirmed by patient verbally. FALL SCREENING: Has the patient had 2 falls in the last year or 1 fall with injury or currently using an Ambulatory Assistive Device (Walker, Cane, Wheelchair, Crutches, etc.)? No PATIENT GENDER DATA: Male PATIENT RELEVANT IMPLANT DATA REVIEWED: Not Applicable RADIOLOGY DEPARTMENT: General X-ray: Exam(s) Completed: Lower Extremity X-Ray(s): Knee, AP / Lat / Tunne / Merchant Left and Wt. Bearing PERIPHERAL IV DATA: Not applicable SIGNED BY: RT Yolanda(R) February 16, 2021 12:03 PM [facility] 02-16-2021 Note HNO ID: [id number] Author: Ghulam Ortega MD Service: ? Author Type: Physician Type: Progress Notes Filed: 02/16/2021 12:57 PM Note Text: Patient presents with: Knee Pain: (LT) knee pain, intermittent pain rated 8, dnied injury Back Pain: pain rated 2, ongoing x8 yrs HPI: Left knee pain: Duration: 1 year, intermittent waxing and waning. Location: Left knee Character: sharp Radiation: No. Aggravating: bending, standing and walking Relieving: rest Pain relievers: Tried multiple Associated: Intermittent swelling Pertinent negatives: Denies locking, giving out, known injury MEDICATIONS: aspirin 325 mg tablet Take 325 mg by mouth once daily. Azelastine HCl (OPTIVAR) 0.05 % ophthalmic solution Use 1 Drop in both eyes twice daily. metoprolol succinate ER (TOPROL XL) 100 mg Tb24 Take 1 tablet by mouth once daily. losartan (COZAAR) 100 mg tablet Take 1 tablet by mouth once daily. hydroCHLOROthiazide (HYDRODIURIL, ESIDRIX) 25 mg tablet Take 1 tablet by mouth once daily. diazePAM (VALIUM) 10 mg tablet Take 10 mg by mouth every 6 hours as needed (back spasms). ALLERGIES: ALLERGIES Allergen Reactions - Lisinopril Cough - Milk - Paper Tape [Other] VITALS: BP 144/100 (BP Site: Left Arm, BP Position: Sitting) Pulse 74 Temp 36.8 ?C (98.2 ?F) (Temporal Artery) Resp 13 Wt (!) 146.6 kg (323 lb 3.2 oz) BMI 47.04 kg/m? PHYSICAL EXAM: GEN: pleasant, no acute distress, alert HEENT: PERRL, EOMI, MMM NECK: supple, HEART: regular rate, regular rhythm, no murmurs LUNGS: clear to auscultation, no wheezes or crackles, no increased WOB EXT: no clubbing, no cyanosis, no edema KNEE: left. No effusion or deformity. FROM with pain. No crepitus. medial joint line and popliteal tenderness. Stable to varus and valgus strain. Negative anterior drawer test. Negative posterior drawer test. Antalgic gait improves after initial get up and go. ASSESSMENT/PLAN: 1. Chronic pain of left knee - ICD9: 719.46, 338.29, ICD10: M25.562, G89.29 (primary diagnosis) - XR KNEE GENERAL 4V AP BOTH/PA BOTH/LAT/MERC LEFT - degenerative changes. Beneficial treatments could include weight loss, PT, injection, analgesia, bracing. Avoid NSAIDs with uncontrolled HTN. - CONSULT TO ORTHOPAEDICS 2. Essential hypertension - ICD9: 401.9, ICD10: I10 - poor control - Noncompliance, off medications, last seen 2018. He has follow up with his PCP in a month. He would like to resume - METOPROLOL SUCCINATE ER 100 MG TABLET,EXTENDED RELEASE 24 HR Ghulam Ortega MD [facility] 02-16-2021 History of Present illness Narrative Radiology Service Progress Note PATIENT NAME: Kristopher Polo DATE OF SERVICE: February 16, 2021 TIME: 12:03 PM PATIENT IDENTITY VERIFICATION COMPLETED USING TWO (2) IDENTIFIERS: Name and Date of confirmed by patient verbally. FALL SCREENING: Has the patient had 2 falls in the last year or 1 fall with injury or currently using an Ambulatory Assistive Device (Walker, Cane, Wheelchair, Crutches, etc.)? No PATIENT GENDER DATA: Male PATIENT RELEVANT IMPLANT DATA REVIEWED: Not Applicable RADIOLOGY DEPARTMENT: General X-ray: Exam(s) Completed: Lower Extremity X-Ray(s): Knee, AP / Lat / Tunne / Merchant Left and Wt. Bearing PERIPHERAL IV DATA: Not applicable SIGNED BY: RT Yolanda(R) February 16, 2021 12:03 PM documented in this encounter [facility] Evaluation note Diagnosis Chronic pain of left knee Pain in joint, lower leg [facility] Diagnostic Procedure Only (Urgent) - Closed Specialty Diagnoses / Procedures Referred By Cade t Referred To Contact XR IMAGING Diagnoses Chronic pain of left knee Procedures XR KNEE GENERAL 4V AP BOTH/PA BOTH/LAT/MERC LEFT KNEE AP-WGT/LAT/MERCHANT Jordan, Ghulam J, MD [address] [place] [address] [place] [address] Referral ID Status Reason Start Date Expiration Date V isits Requested Visits Authorized [id number] Closed Auto-Generate d Referral 02/16/2021 03/18/2022 1 1 [facility] for visit Narrative* Diagnostic Procedure Only (Urgent) - Closed Specialty Diagnoses / Procedures Referred By Contac t Referred To Contact XR IMAGING Diagnoses Chronic pain of left knee Procedures XR KNEE GENERAL 4V AP BOTH/PA BOTH/LAT/MERC LEFT KNEE AP-WGT/LAT/Ghulam Quinteros MD [address] [place] [address] [place] [address] Referral ID Status Reason Start Date Expiration Date V isits Requested Visits Authorized [id number] Closed Auto-Generate d Referral 02/16/2021 03/18/2022 1 1 [facility] Summary Purpose Family History No Family History Records FoundNo Family History Records Found Advance Directives No Advanced Directives Records FoundNo Advanced Directives Records Found Additional Source Comments (unrecognized sect ion and content) No Status Records FoundNo Status Records Found INFORMATION SOURCE (unrecogn ized section and content) DATE CREATED AUTHOR 12/17/2021 [facility] DATE CREATED AUTHOR AUTHOR'S ORGANIZ ATION 12/14/2023 [facility] Source Comments (unrecognize d section and content) In the event this informatio n is protected by the Federal Confidentiality of Alcohol and Drug Abuse Patient Records regulations: The Federal rules restrict any use of the information to criminally investigate or prosecute any alcohol or drug abuse patient.[facility] Care Teams (unrecognized sec tion and content) Flooring Sales Manager Relationship Specialty Start Date End Date Janay Menchaca MD [address] [place] [address] PCP - General Family Medicine 06/15/17 FOR RECORDS PERTAINING TO PATIENTS WHO ARE OR HAVE BEEN ENROLLED IN A CHEMICAL DEPENDENCY/SUBSTANCEABUSE PROGRAM, SOME INFORMATION MAY BE OMITTED. This clinical summary was aggregated from multiple sources. Caution should be exercised in using it in the provision of clinical care. This summary normalizes information from multiple sources, and as a consequence, information in this document may materially change the coding, format and clinical context of patient data. In addition, data may be omitted in some cases. CLINICAL DECISIONS SHOULD BE BASED ON THE PRIMARY CLINICAL RECORDS. [facility] [employer] provides no warranty or guarantee of the accuracy or completeness of information in this document.
[2024-11-19 03:16] LABS: Hematocrit 42.1 % (40-54); Hemoglobin 14.9 g/dL (13.0-16.5); Immature Granulocytes Count 0.030 X10^3/uL (0.0-0.0); Mean Corp Hgb Conc 35.4 g/dL (32-36); Mean Corpuscular Volume 85.7 fL (80-94); Mean Platelet Vol. 10.2 fl (6.2-12.0); NRBC Flagged by Analyzer 0 % (0-5); Platelet Count 255 K/mm3 (150-450); RBC Distribution Width CV 12.8 % (11.6-14.6); RBC Distribution Width SD 39.7 fl (35.1-43.9); Red Blood Count 4.91 M/mm3 (4.6-6.2); White Blood Count 10.2 K/mm3 (4.4-11.0)
--- NOTE | 2024-11-19 03:26 | CT_ITS ---
PROCEDURE: CTA CHEST W/WO CONTRAST 11/19/2024 REASON FOR EXAM: DYSPNEA TECHNIQUE: Procedure Code: [id number] Modality: CT Procedure: CTA CHEST W/WO CONTRAST Multiplanar Sagittal and Coronal images were obtained. isovue 370 VOLUME: 100 mL One or more dose reduction techniques were used (e.g., Automated exposure control, adjustment of the mA and/or kV according to patient size, use of iterative reconstruction technique). RADIATION DOSE SUMMARY: CTDI Vol 8.61 mGy DLP :291.94 mGycm COMPARISON: none FINDINGS: No evidence of any filling defect in the main pulmonary trunk, bilateral main pulmonary arteries, segmental arteries and subsegmental arteries to suggest acute or chronic pulmonary embolism. Dilated pulmonary artery reaching 3.3 cm. Patent dilated thoracic aorta showing mild intimal irregularities and calcified atheromatous plaques. No intraluminal hypodense thrombi, dissecting intimal flaps or significant aneurysmal dilatation. Cardiomegaly. Bilateral pulmonary subpleural interlobular septae thickening and patchy veiling with atelectatic changes. diagnostic possibilities include pulmonary edema and infection. Advise clinical correlation. Bilateral lower lobes bronchial wall thickening. No pleural or pericardial sac collections. No pathologically enlarged lymph nodes are noted. Scanned osseous structures show no osseous destruction. Thoracic spondylosis. CT/CTA Chest W/WO Contrast IMPRESSION: No evidence of pulmonary arterial thromboembolism. Cardiomegaly with dilated pulmonary artery Bilateral pulmonary subpleural interlobular septae thickening and patchy veilin g with atelectatic changes. diagnostic possibilities include pulmonary edema and infection. Advise clinical correlatio n. Reading Location: [place] [address]
[2024-11-19 03:58] LABS: Partial Thromboplast Time 26.6 Seconds (24.1-36.2); Prothrombin Time (Protime)PT. 13.7 SECONDS (11.7-14.9)
[2024-11-19 04:04] LABS: Anion Gap 13 (5-15); BUN 13 mg/dL (4-19); BUN/Creat Ratio 14.5 RATIO (10-20); Calcium,Total 9.1 mg/dL (7.6-11.0); Carbon Dioxide 22.6 mmol/L (21.0-32.0); Chloride 104 mmol/L (98-108); Estimated Creatinine Clearance 135.49 ml/min (50-250); Glucose 131 mg/dL (70-99); Magnesium 1.9 mg/dL (1.5-2.2); Potassium 3.7 mmol/L (3.3-5.1); Pro- Brain NATRIURETIC PEPTIDE 872 pg/mL (<=900)
[2024-11-19 04:55] LABS: Troponin T High Sensitivity 75 ng/L (<=22)
[2024-11-19 06:08] LABS: Troponin T High Sens 2 HR 75 ng/L (<=22)
--- NOTE | 2024-11-19 06:27 | EX.ED.DYSGE1 ---
HPI History of Present Illness Chief Complaint: Shortness of Breath Informant: patient and spouse/S.O. Narrative Narrative: Patient is a 54-year-old male with past medical history of hypertension and obstructive sleep apnea. However he states he does not take medication for his blood pressure nor does he wear his CPAP machine. He states that this evening/morning he awoke with sensation of shortness of breath. He states there was no associated chest pain nausea vomiting or diaphoresis with this. He states that the symptoms however have not been improving since he awoke and was concerned this could be cardiac or lung pathology presents for evaluation. [facility] Medical History (Updated 11/22/24 @ 01:[address] Ned Gordon, DO) Gout Biceps tendon rupture Sprained ankle Back muscle spasm Hypertension Home Medications ?Medication ?Instructions ?Recorded ?Last Taken ?Type doxycycline hyclate 100 mg capsule 100 mg PO BID 10 days #20 caps 11/19/24 Unknown Rx Allergy/AdvReac Type Severity Reaction Status Date / Time No Known Allergies Allergy Verified 11/19/24 02:26 Surgical History History of carpal tunnel surgery History of cholecystectomy Hx of cataract surgery Social History Smoking Status: Never smoker ROS ROS ED Constitutional Constitutional ED: Denies chills or fever(s) Eyes Eyes: Denies change in vision ENT ENT ED: Denies rhinorrhea or sore throat Cardiovascular Cardiovascular: Denies chest pain, palpitations or racing heartbeat Respiratory/Chest Respiratory/Chest: Reports dyspnea; Denies cough Gastrointestinal Gastrointestinal: Denies abdominal pain, diarrhea, nausea or vomiting Musculoskeletal Musculoskeletal: Denies back pain or myalgias Integumentary Denies rash Neurologic Neurologic: Denies headache(s) Hematologic/Lymphatic Hematologic/Lymphatic: Denies easy bleeding or easy bruising Allergic/Immunologic Allergic/Immunologic ED: Denies mouth swelling or tongue swelling EXAM Physical Exam Const Vital Signs: 11/19/24 02:26 11/19/24 02:29 11/19/24 02:30 Temperature 97.4 F L 97.4 F L Temperature Source Axillary Axillary Pulse Rate 101 H 97 Respiratory Rate 24 H 23 H Respiratory Effort Short of Breath Blood Pressure 241/170 H 241/170 H Blood Pressure Mean 193 193 Pulse Ox 97 97 Oxygen Delivery Method 11/19/24 02:31 11/19/24 03:15 11/19/24 03:29 Temperature 97.4 F L Temperature Source Axillary Pulse Rate 87 81 Respiratory Rate 19 H 20 H Respiratory Effort Blood Pressure 248/147 H 196/124 H 173/110 H Blood Pressure Mean 180 148 131 Pulse Ox 93 95 Oxygen Delivery Method Room Air Room Air 11/19/24 04:00 11/19/24 05:00 11/19/24 06:00 Temperature 98.1 F 98.1 F Temperature Source Oral Oral Pulse Rate 80 82 85 Respiratory Rate 18 18 17 Respiratory Effort Blood Pressure 174/118 H 163/105 H 159/118 H Blood Pressure Mean 136 124 131 Pulse Ox 96 98 99 Oxygen Delivery Method Room Air Room Air Room Air 11/19/24 06:25 Temperature 98.1 F Temperature Source Pulse Rate 85 Respiratory Rate 18 Respiratory Effort Blood Pressure 177/110 H Blood Pressure Mean 132 Pulse Ox 98 Oxygen Delivery Method Positive well nourished, well developed and obese General Appearance ED: well developed; Negative for pallor Nutritional Appearance: obese HEENT HEENT Narrative: Normocephalic atraumatic No tongue or lip swelling no oral lesions no airway edema or compromise; no secondary findings in the posterior pharynx to suggest infection Eyes PERRL and EOMs intact bilaterally General Eye ED: Negative for scleral icterus Neck supple and no JVD Chest Wall palpation of chest normal Resp clear to auscultation bilaterally Resp Narrative: Breath sounds are diminished throughout but overall clear to auscultation. Patient has mild tachypnea upon arrival but otherwise no nasal flaring retractions or accessory muscle use. Cardio regular rate and regular rhythm Rate: other Other Details: Heart is regular rate and rhythm Radial and carotid pulses are equal and symmetric GI normal to inspection, nondistended, normoactive bowel sounds, non-tender, non-distended and no masses GI Narrative: No voluntary guarding or rigidity or pulsatile mass Auscultation: normoactive bowel sounds Palpation: soft Extremity Extremity Narrative: Bilateral nonpitting edema is present in the lower extremity; negative Homans' sign however Neuro oriented x3, CN's II-XII intact bilaterally and no sensory deficits noted Sensorium / Orientation: alert Motor Exam: strength 5/5 throughout Psych mental status grossly normal Skin no rashes or lesions noted and no wounds General Skin Exam: Negative for jaundice or pallor MDM MDM MDM Narrative Medical decision making narrative: Patient arrived to the ER hypertensive but satting 97% on room air. He reported waking with shortness of breath but did not have chest pain nausea vomiting or diaphoresis. Based on his hypertension and shortness of breath however there is concern this could be cardiac/ACS and therefore a basic workup was obtained. He does not have chest pain but secondary to the hypertension and dyspnea there is concern for PE versus dissection so CTA was obtained of the chest. CTA revealed no PE or dissection. It did show changes could be associated with pulmonary edema or early infection. Patient's proBNP is normal and he does not have JVD nor other crackles associate on exam. With hypertension there is also concern for acute kidney injury or endorgan damage. Patient's kidney function is normal. His troponin was elevated at 75 however he did not have ischemic changes on his EKG and he denied chest pain. The delta troponin was also 75 and as the value was not climbing this is most likely related to vessel spasm from the hypertension but not true ACS. I discussed with patient admission secondary to his hypertension and mildly elevated troponin. He states that he feels normal at this time with improvement of his blood pressure. He states that as his troponin did not elevate he has low concern it is due to ACS and he agrees it is most likely hypertension and because of this he does not feel he needs admitted for cardiac workup. The patient does not have a fever or leukocytosis but while in the ER he did bring up a discolored bout of phlegm. With the radiologist stating the CTA showed changes it could be developing infection I do feel the safest option is to be placed on a round of doxycycline. At this time the patient's blood pressure has improved by 15 to 25% which is the goal reduction in the ER. He is not have signs of acute kidney injury. His troponin is elevated but it has not gone up over the last 2 hours and he does not have chest pain and moreover he does not want admitted for further workup as his vitals have improved and his symptoms resolved. Therefore at this time I will comply with his wishes and discharge the patient. He understands that if symptoms worsen he can return for repeat evaluation. We did discuss placing him on antihypertensive medication but he states he does not wish to take them at this time. History & Record Review Discussion w/independent historian: Patient and Significant other Lab Data Attestation: I reviewed the patient's lab results. Labs: Laboratory Results - last 24 hr 11/19/24 11/19/24 02:46 05:10 WBC 10.2 RBC 4.91 Hgb 14.9 Hct 42.1 MCV 85.7 MCH 30.3 MCHC 35.4 RDW Std Deviation 39.7 RDW Coeff of Carmelo 12.8 Plt Count 255 MPV 10.2 Immature Gran % (Auto) 0.300 Neut % (Auto) 66.4 Lymph % (Auto) 21.8 Bent % (Auto) 6.3 Eos % (Auto) 4.8 Baso % (Auto) 0.4 Absolute Neuts (auto) 6.8 Absolute Lymphs (auto) 2.23 Nucleated RBC % 0 PT 13.7 INR 1.0 APTT 26.6 Sodium 140 Potassium 3.7 Chloride 104 Carbon Dioxide 22.6 Anion Gap 13 BUN 13 Creatinine 0.92 Estim Creat Clear Calc 135.49 Est GFR (MDRD) Non-Af 98 BUN/Creatinine Ratio 14.5 Glucose 131 H Calcium 9.1 Magnesium 1.9 Troponin T High Sens 75 H* Troponin T Hi Sens 2 Hr 75 H* NT pro BNP II 872 Radiography Diagnostic Testing: Clinical Impression(s) from Imaging Studies Chest CTA 11/19/24 03:26 IMPRESSION: No evidence of pulmonary arterial thromboembolism. Cardiomegaly with dilated pulmonary artery Bilateral pulmonary subpleural interlobular septae thickening and patchy veiling with atelectatic changes. diagnostic possibilities include pulmonary edema and infection. Advise clinical correlation. Reading Location: [place] [address] Discharge Plan Triage Chief Complaint: Shortness of Breath ED Provider: Ned Gordon Dx/Rx/DC Orders Clinical Impression: Hypertension, Dyspnea, Obstructive sleep apnea Instructions: ED Dyspnea, ED High Blood Pressure Hypertension Prescriptions: New doxycycline hyclate 100 mg capsule 100 mg PO BID 10 Days Qty: 20 0RF Stand Alone Forms: ED Work / School Excuse Primary Care Provider: Care Physician,No Primary Referrals: Noé Downing MD [Med Staff - Active Staff] - Care Physician,No Primary [Primary Care Provider] - Activity Restrictions/Additional Instructions: Please take the doxycycline as prescribed as your chest CT revealed changes to the lung tissue concerning for pulmonary edema versus developing infiltrate. As you had a productive cough in the ER with sputum production the safest option is to take antibiotic to cover your lung tissue. Please follow-up with your family doctor to discuss beginning hypertension medication and return to the ER should you have any further concerns or worsening of symptoms. Print Language: Maltese Disposition Disposition: Home, Self Care Discharge Date/Time: 11/19/24 06:39
== END 2024-11-19 06:39 | disposition home or self-care (01) ==
PROVIDERS: Emergency Provider Emergency Medicine; Visit Provider Emergency Medicine
DX: I10 Essential (primary) hypertension (principal); G47.33 Obstructive sleep apnea (adult) (pediatric); R06.02 Shortness of breath; E66.9 Obesity, unspecified
CPT/HCPCS: 71275; 80048; 83735; 83880; 84484; 85025; 85610; 85730; 93005; 96374; 99282; Q9967; A4216